=== PATIENT | female | born 1945 | race Hispanic/Latino ===

== ENCOUNTER 2017-02-04 05:58 | Inpatient (IN) | payer MEDICARE, OTHER ==
[2017-02-04 06:46] LABS: ALT (SGPT) 8 U/L (8-55); AST (SGOT) 13 U/L (5-34); Alkaline Phosphatase 48 U/L (40-150); Anion Gap 12 mmol/L (10-20); BUN (Urea Nitrogen) 30 mg/dL (9.8-20.1); Bilirubin, Total 0.2 mg/dL (0.2-1.2); Calc. Creatinine Clearance 0 mL/min (70-130); Calcium 7.8 mg/dL (7.8-10.44); Carbon Dioxide 21 mmol/L (23-31); Chloride 109 mmol/L (98-107); Estimated GFR-MDRD Greater than 90; Globulin 3.1 g/dL (2.4-3.5); Protein, Total 5.8 g/dL (6.0-8.3)
[2017-02-04 06:51] LABS: #Eosinphils 0.2 thou/uL (0.0-0.7); #Lymphocytes 0.9 thou/uL (1.20-3.40); #Monocytes 0.6 thou/uL (0.11-0.59); #Neutrophils 8.9 thou/uL (1.40-6.50); %Basophils 0.4 % (0.0-1.0); %Eosinophils 2.1 % (0.0-10.0); %Lymphocytes 8.7 % (21.0-51.0); %Monocytes 5.7 % (0.0-10.0); Hematocrit 17.4 % (36.0-47.0); Mean Platelet Volume 7.6 fL (7.4-10.4); Red Blood Cell (RBC) Count 2.04 mill/uL (4.20-5.40); White Blood Cell (WBC) Count 10.7 thou/uL (4.8-10.8)
[2017-02-04 06:57] LABS: PTT 23.8 SEC (22.9-36.1)
[2017-02-04 06:58] LABS: Prothrombin Time 15.1 SEC (12.0-14.7)
[2017-02-04 07:07] LABS: CK (CPK) 112 U/L (29-168); Lipase 55 U/L (8-78)
[2017-02-04 07:10] LABS: Bilirubin Negative (Negative); Blood, Urine Negative (Negative); Glucose, Urine (Dipstick) Negative (Negative); Ketone, Urine Trace mg/dL (Negative); Nitrite Negative (Negative); Protein, Urine (Dipstick) Negative (Neg-Trace); Urobilinogen 0.2 mg/dL (0.2-1.0)
[2017-02-04 07:12] LABS: Troponin I Less than 0.010 ng/mL (< 0.028)
[2017-02-04 07:24] LABS: Iron 255 ug/dL (50-170)
[2017-02-04] MEDS ORDERED: Zolpidem Tartrate 5 MG TAB ONE (07:27)
--- NOTE | 2017-02-04 07:58 | RAD ---
AP VIEW OF CHEST: Date: 02/04/17 INDICATION: Weakness. COMPARISON: Prior exam dated 11/04/15. FINDINGS: Chronic lung changes appear similar. Cardiomegaly persists. The large hiatal hernia appears slightly bigger. No pleural effusion or pneumothorax is evident. Vascular calcifications are similar. IMPRESSION: 1. Stable chronic lung changes. 2. Enlarging large hiatal hernia. POS: [facility]
[2017-02-04] MEDS ORDERED: HYDROcodone/Acetaminophen 5/325 mg Tablet PO PRN (10:32)
[2017-02-04] MEDS ORDERED: Nitroglycerin 0.4 MG TAB (25 Tab Bottle) SL PRN (10:32)
[2017-02-04] MEDS ORDERED: Zolpidem Tartrate 5 MG TAB PO PRN (10:32)
[2017-02-04] MEDS ORDERED: Ondansetron ODT 4 MG TAB PO PRN (10:32)
[2017-02-04] MEDS ORDERED: Loperamide HCl 2 MG CAP PO PRN (10:32)
[2017-02-04] MEDS ORDERED: hydrALAZINE 20 MG/ML VIAL SLOW IVP PRN (10:32)
[2017-02-04] MEDS ORDERED: Senokot 8.6 MG TAB PO PRN (10:32)
[2017-02-04] MEDS ORDERED: Loratadine 10 MG TAB PO PRN (10:32)
[2017-02-04] MEDS ORDERED: Mag-Al 1200 mg/1200 mg/30 ML UDCUP PO PRN (10:32)
[2017-02-04] MEDS ORDERED: Acetaminophen 325 MG TAB PO PRN (10:32)
[2017-02-04] MEDS ORDERED: Ondansetron HCl/PF 4 MG/2 ML Vial IVP PRN (10:32)
[2017-02-04] MEDS ORDERED: Eucerin (Mineral Oil/Petrolatum,White) 30 gm Jar TOP PRN (10:32)
[2017-02-04] MEDS ORDERED: Calcium Carbonate 500 MG ChewTAB PO PRN (10:32)
[2017-02-04] MEDS ORDERED: Milk Of Magnesia 30 ML UDCUP PO PRN (10:32)
[2017-02-04] MEDS ORDERED: Artificial Tears 18 DROP/0.9 ML EA EYE PRN (10:32)
[2017-02-04] MEDS ORDERED: Sodium Chloride 0.65% Nasal 44 ML BOT EA NARE PRN (10:32)
--- NOTE | 2017-02-04 11:03 | HP ---
PRIMARY CARE PHYSICIAN: The patient is city call admission. The patient is ordinarily from [place], [place]. REASON FOR ADMISSION: Severe symptomatic anemia and syncope. HISTORY OF PRESENT ILLNESS: A 71-year-old female with a history of COPD, hypertension, who was brought to the emergency room for syncopal episode. Patient recently came from [place] when she was visiting her daughter. During night time, she was sleeping with her granddaughter, she woke up around middle of night and she went to bathroom. At that time, she was feeling weird abdominal pain and she started feeling dizzy and she was not able to control herself and she fell down on the floor. Her granddaughter heard noise and when she checked her, at that time she was found on the floor, but she was conscious. She did not have any injury. She was not having any involuntary seizure-type of activity, but patient was appeared exhausted, weak and pale. Subsequently with the help of patient's daughter, the patient was taken to the room where she was continuously feeling nausea, dizziness, and she was feeling weak. She denies any hematochezia, hematemesis or vomiting, but she was having black stool, which she attributes to taking iron pill. She denies any abdominal pain. Lately, she was taking ibuprofen for the last 2-3 days for her arthritis pain. She denies any chest pain. She denies any palpitation. She denies any fever, chills or urinary tract infection symptoms. She denies any constipation or diarrhea. She does have chronic dyspnea on exertion and she does have chronic cough productive of white sputum from COPD. ALLERGIES: GABAPENTIN. CURRENT HOME MEDICATIONS: Albuterol 2 puff inhalation as needed, ferrous sulfate 325 mg twice daily, Singulair 10 mg p.o. daily, Symbicort 2 puff inhalation b.i.d., cetirizine 10 mg p.o. daily, lisinopril 10 mg p.o. daily and anastrozole 1 mg p.o. daily. REVIEW OF SYSTEMS: The following complete review of systems was negative, unless otherwise mentioned in the HPI or below: CONSTITUTIONAL: Weight loss or gain, ability to conduct usual activities. SKIN: Rash, itching. EYES: Double vision, pain. ENT/MOUTH: Nose bleeding, neck stiffness, pain, tenderness. CARDIOVASCULAR: Palpitations, dyspnea on exertion, orthopnea. RESPIRATORY: Shortness of breath, wheezing, cough, hemoptysis, fever or night sweats. GASTROINTESTINAL: Poor appetite, abdominal pain, heartburn, nausea, vomiting, constipation, or diarrhea. GENITOURINARY: Urgency, frequency, dysuria, nocturia. MUSCULOSKELETAL: Pain, swelling. NEUROLOGIC/PSYCHIATRIC: Anxiety, depression. ALLERGY/IMMUNOLOGIC: Skin rash, bleeding tendency Please see my HPI for pertinent positives and negatives. All other review of systems reviewed and negative except as mentioned in the HPI. PAST MEDICAL HISTORY: COPD, history of breast carcinoma, history of recurrent anemia required blood transfusion. PAST SURGICAL HISTORY: The patient reports that she had lymph node removed from CA breast on the left side and . PAST PSYCHIATRIC HISTORY: Reviewed and negative. SOCIAL HISTORY: Patient is originally from [place], [place]. She currently lives with her daughter. No history of tobacco, alcohol or illicit drug abuse. She is not working. FAMILY HISTORY: No strong family history of premature coronary artery disease, stroke or cancer. EMERGENCY ROOM COURSE: Patient is going to get 2 units of blood transfusion. Patient has received Protonix drip and IV fluid 1 liter. PHYSICAL EXAMINATION: VITAL SIGNS: On arrival, blood pressure 115/49, temperature 98.4, saturation 99 % on room air, pulse 104, respiratory rate 18. Weight 71.6 kilograms. GENERAL: Patient is currently alert, awake, appears weak. No obvious acute distress. The patient is currently mildly tachycardic and tachypneic. HEAD: Normocephalic, atraumatic. EYES: Pupils round, reactive to light. Pallor conjunctivae. No nystagmus. ENT: Pale mucous membranes. No oral lesions. No pharyngeal erythema, no exudate. NECK: Supple, no JVD, no thyromegaly, no carotid bruit. LUNGS: Bilateral few end expiratory wheezing heard. No rales. CARDIAC: S1, S2 regular, tachycardia, soft systolic murmur noted at parasternal area. No gallop, no rub. ABDOMEN: Soft, bowel sounds present, nontender, no epigastric tenderness. No peritoneal signs, no guarding, no rigidity, no rebound. BACK: Unremarkable, no CVA tenderness. EXTREMITIES: Upper extremity: Passive movement of all joints are normal. Lower extremity: Trace bilateral pitting edema noted. No good peripheral pulsation. SKIN: Pallor plus. No rash. HEMATOLOGICAL SYSTEM: No lymphadenopathy. PSYCHIATRIC: Normal affect. NEUROLOGIC: Nonfocal examination. The patient moves all 4 limbs. Plantar bilateral flexor. SIGNIFICANT LABS: EKG showing sinus tachycardia, no acute process. Chest x-ray : Cardiomegaly, chronic lung changes. CBC: WBC 10.7, hemoglobin 5.3, platelets 416, MCV 85.1. INR 1.2. BMPP: Sodium 137, potassium 4.6, chloride 109, carbon dioxide 21, BUN 30, creatinine 0.64, glucose 181 and calcium 7.8. LFT: AST 13, ALT 8, alkaline phosphatase 48 and albumin 2.7. Lipase 55. CK 112, CK-MB 2.5, troponin I less than 0.010. Iron 255, TIBC 329, ferritin 58.3. Urinalysis normal. Stool for guaiac negative. ASSESSMENT AND PLAN/IMPRESSION: 1. Severe symptomatic anemia. Currently, patient's hemoglobin is 5.3. Patient 's hemoccult is negative. She has iron deficiency anemia. She had a colonoscopy several years ago. We are suspecting chronic blood loss, underlying malignancy needs to be excluded given her symptomatic anemia. Patient will require 2 units of blood transfusion today and will repeat CBC tomorrow. Because of severe anemia, we will avoid any DVT prophylaxis with heparin product. At this point, we will consult Gastroenterology for further evaluation with upper and lower endoscopy. We will also continue with Protonix drip until finished, which was started in the emergency room and after that will change to Protonix 40 mg IV b.i.d. We will closely monitor on telemetry floor. 2. Chronic iron deficiency anemia. Patient has iron deficiency anemia from past as well, but currently acutely gotten worse. 3. Syncope. We will check orthostatic vitals to rule out orthostatic hypotension. Most likely, syncope is related with severe anemia. Plan would be as mentioned in problem #1. We will also obtain echocardiography to assess ejection fraction and other structural abnormality. 4. Chronic obstructive pulmonary disease /asthma. We will continue Solu- Medrol 20 mg IV q.8 hourly, DuoNeb q.6 hourly and Dulera 2 puffs inhalation b.i.d. 5. Hyperglycemia. We will check hemoglobin A1c to rule out any diabetes. 6. Hypertension. If blood pressure permits, then we will consider antihypertensive medication given blood pressure runs low in the emergency room. We will avoid her home blood pressure medication. 7. Deep venous thrombosis prophylaxis, sequential compression device boots. 8. Gastrointestinal prophylaxis. Currently, patient is on Protonix drip and subsequently we will resume Protonix 40 mg IV b.i.d. 9. Code status: The patient WANTED TO BE DNR BUT LATER ON CHANGED TO FULL CODE. The patient's daughter is surrogate decision maker. Disposition plan based on clinical course. We are expecting patient's stay in the hospital more than 2 midnights. Plan of care discussed with the patient in detail. ADDENDUM: IN EVENING I DISCUSSED CODE STATUS AGAIN AND PATIENT HAS CHANGED HER MIND AND SHE DECIDED TO BE FULL CODE. SO DNR CHANGED TO FULL CODE. WILL
[2017-02-04 11:45] LABS: Hemoglobin A1c 4.9 % (4.0-6.0)
[2017-02-04] MEDS: Diabetic Tussin 200 MG/10 ML UDCUP PO PRN (17:50)
[2017-02-04] MEDS: Pantoprazole 80 MG, Admixture Fee 1 EACH in Sodium Chloride 0.9% 100 ML IVP SCH (17:50)
[2017-02-04] MEDS: Ferrous Sulfate 325 MG TAB PO SCH (17:50)
[2017-02-04] MEDS: Mometasone/Formoterol 120 PUFF INHALER INH SCH (18:40)
[2017-02-04] MEDS: Montelukast Sodium 10 mg Tablet PO SCH (21:37)
--- NOTE | 2017-02-04 23:47 | CON ---
DATE OF CONSULTATION: 02/04/2017 HISTORY OF PRESENT ILLNESS: Patient is a 71-year-old female who was found passed out by her daughter. She had been feeling weak and dizzy for quite sometime. She has a long history of anemia . She says 15 years and is followed by Hematology-Oncologist in [place]. She has not been told the source of her anemia. She has undergone upper and lower endoscopies in the past as well as a cap beni endoscopy with no bleeding sites found. She never has any melena, hematochezia. She has no abd ominal pain, nausea, vomiting, or diarrhea. PAST MEDICAL HISTORY: Includes COPD, chronic anemia, breast cancer. PAST SURGICAL HISTORY: Includes breast surgery, . MEDICATIONS: Include albuterol 2 puffs q.4 hours p.r.n., ferrous sulfate 325 mg p.o. b.i.d., Singula ir 10 mg p.o. q. day, Symbicort 2 puffs inhaled b.i.d., cetirizine 10 mg p.o. q. day, lisinopril 10 m g p.o. q. day, anastrozole 1 mg p.o. q. day. ALLERGIES: GABAPENTIN. SOCIAL HISTORY: She does not smoke or drink. FAMILY HISTORY: Negative for GI or liver disease. REVIEW OF SYSTEMS: Constitutional: No fever or chills. No weight loss. Eyes: No blurred vision o r double vision. ENT: No sore throat or earaches. Cardiovascular: No chest pain or palpitations. Pulmonary: No shortness of breath, cough, or wheezing. Gastrointestinal: See above. Genitourinar y:: No hematuria or dysuria. Musculoskeletal: Positive for generalized weakness. Neurologic: No numbness or seizure activity. PHYSICAL EXAMINATION: GENERAL: Shows elderly female in no acute distress. VITAL SIGNS: Temperature 98.6, pulse 102, respiratory rate 20, blood pressure 123/56. HEENT: Unremarkable. NECK: Supple. CHEST: Clear. CARDIOVASCULAR: Regular rate and rhythm. ABDOMEN: Soft, nontender, without organomegaly or masses. Bowel sounds present and normoactive. RECTAL: Deferred. EXTREMITIES: Normal. NEUROLOGIC: Nonfocal. LABORATORY DATA: Urinalysis is normal. CBC on admission showed a hemoglobin of 53, hematocrit 17.4, MCV of 85.1, platelet count is 416, white blood cell count 10.7. Back in 2016, iron was 11, TIBC wa s 401 and percent saturation was 3. Ferritin this time is 58.33. ASSESSMENT: 1. Symptomatic anemia. 2. Syncope secondary to symptomatic anemia. 3. Previous GI workup for anemia has been negative. RECOMMENDATIONS: 1. No need for endoscopy at this time. Follow up with Hematology-Oncology. 2. May discontinue iron.
[2017-02-05] MEDS: Pantoprazole 80 MG, Admixture Fee 1 EACH in Sodium Chloride 0.9% 100 ML IVP SCH (03:51)
[2017-02-05 05:01] LABS: #Lymphocytes 0.8 thou/uL (1.20-3.40); #Monocytes 0.2 thou/uL (0.11-0.59); #Neutrophils 11.5 thou/uL (1.40-6.50); %Basophils 0.3 % (0.0-1.0); %Eosinophils 0.3 % (0.0-10.0); %Lymphocytes 6.1 % (21.0-51.0); %Monocytes 1.2 % (0.0-10.0); Mean Platelet Volume 7.5 fL (7.4-10.4); Red Blood Cell (RBC) Count 2.75 mill/uL (4.20-5.40); White Blood Cell (WBC) Count 12.5 thou/uL (4.8-10.8)
[2017-02-05 05:29] LABS: ALT (SGPT) 8 U/L (8-55); AST (SGOT) 14 U/L (5-34); Alkaline Phosphatase 46 U/L (40-150); Anion Gap 9 mmol/L (10-20); BUN (Urea Nitrogen) 14 mg/dL (9.8-20.1); Bilirubin, Total 0.4 mg/dL (0.2-1.2); Calc. Creatinine Clearance 85 mL/min (70-130); Calcium 8.2 mg/dL (7.8-10.44); Carbon Dioxide 21 mmol/L (23-31); Chloride 112 mmol/L (98-107); Estimated GFR-MDRD 88; Globulin 3.2 g/dL (2.4-3.5)
[2017-02-05] MEDS: Mometasone/Formoterol 120 PUFF INHALER INH SCH ×2 (07:10→18:48)
[2017-02-05] MEDS: Ferrous Sulfate 325 MG TAB PO SCH ×2 (08:21→17:09)
--- NOTE | 2017-02-05 09:12 | PDOC.PN ---
- Subjective Encounter Start Date: 02/05/17 Encounter Start Time: 07:40 -: old records requested/rev Patient seen and examined. No new complaints. No overnight events, still weak, - Objective Resuscitation Status: Resuscitation Status FULL:Full Resuscitation MAR Reviewed: Yes Vital Signs & Weight: Vital Signs (12 hours) Temp Pulse Resp BP BP BP Pulse Ox 02/05/17 08:00 98.2 F 101 H 16 112/56 L 94 L 02/05/17 07:10 90 12 02/05/17 07:05 96 02/05/17 07:03 90 12 02/05/17 04:00 98.0 F 92 22 H 91/45 L 94 L 02/05/17 03:47 98.0 F 92 22 H 91/45 L 94 L 02/05/17 00:51 96 02/05/17 00:00 93 96/46 L 02/04/17 23:43 98.9 F 93 18 96/46 L 94 L Weight Weight 155 lb 12.8 oz I&O: 02/04/17 02/05/17 02/06/17 06:59 06:59 06:59 Intake Total 1605 Output Total 3300 Balance -1695 Result Diagrams: 02/05/17 04:46 02/05/17 04:46 EKG Reviewed by me: Yes (sinus tachycardia) Phys Exam - Physical Examination Constitutional: NAD HEENT: PERRLA, moist MMs, sclera anicteric Neck: no JVD, supple Respiratory: no wheezing, no rales, no rhonchi Cardiovascular: RRR, no significant murmur, no rub Gastrointestinal: soft, non-tender, no distention, positive bowel sounds Musculoskeletal: no edema, pulses present Neurological: non-focal, normal sensation, moves all 4 limbs Lymphatic: no nodes Psychiatric: normal affect, A&O x 3 Skin: no rash, normal turgor Dx/Plan (1) Symptomatic anemia Code(s): D64.9 - ANEMIA, UNSPECIFIED Status: Acute (2) Syncope Code(s): R55 - SYNCOPE AND COLLAPSE Status: Acute (3) COPD (chronic obstructive pulmonary disease) Status: Chronic (4) Hypertension Code(s): I10 - ESSENTIAL (PRIMARY) HYPERTENSION Status: Chronic - Plan cont current plan of care * medication reviewed as below * symptomatic treatment * will consult hematology * as per GI- negative work up recently, no need of repeating again * start PT * echo pending. Review of Systems - Review of Systems Constitutional: Weakness. negative: Fever, Chills, Sweats, Malaise, Other ENT: negative: Ear Pain, Ear Discharge, Nose Pain, Nose Discharge, Nose Congestion, Mouth Pain, Mouth Swelling, Throat Pain, Throat Swelling, Other Respiratory: negative: Cough, Dry, Shortness of Breath, Hemoptysis, SOB with Excertion, Pleuritic Pain, Sputum, Wheezing Cardiovascular: negative: Chest Pain, Palpitations, Orthopnea, Paroxysmal Noc. Dyspnea, Edema, Light Headedness, Other Gastrointestinal: negative: Nausea, Vomiting, Abdominal Pain, Diarrhea, Constipation, Melena, Hematochezia, Other Genitourinary: negative: Dysuria, Frequency, Incontinence, Hematuria, Retention , Other Musculoskeletal: negative: Neck Pain, Shoulder Pain, Arm Pain, Back Pain, Hand Pain, Leg Pain, Foot Pain, Other Skin: negative: Rash, Lesions, Shaan, Bruising, Other - Medications/Allergies Allergies/Adverse Reactions: Allergies Allergy/AdvReac Type Severity Reaction Status Date / Time acetaminophen [From Tylenol] Allergy Verified 02/04/17 12:20 gabapentin Allergy Verified 02/04/17 10:43 Medications: Current Medications Hydrocodone Bitart/Acetaminophen ([place] 5/325) 1 tab PO Q4H PRN PRN Reason: Moderate Pain (4-6) Al Hydroxide/Mg Hydroxide (Maalox) 30 ml PO Q6H PRN PRN Reason: Heartburn or Indigestion Albuterol/Ipratropium (Duoneb) 3 ml NEB [id number] [facility] Last Admin: 02/05/17 07:03 Dose: 3 ml Artificial Tears (Tears Naturale) 0 drop EA EYE PRN PRN PRN Reason: Dry Eyes Calcium Carbonate (Tums) 1,000 mg PO Q4H PRN PRN Reason: Heartburn or Indigestion Ferrous Sulfate (Feosol) 325 mg PO BID-WM [facility] Last Admin: 02/05/17 08:21 Dose: 325 mg Guaifenesin (Robitussin Sf) 200 mg PO Q4H PRN PRN Reason: Cough Last Admin: 02/04/17 17:50 Dose: 200 mg Hydralazine HCl (Apresoline) 10 mg SLOW IVP Q4H PRN PRN Reason: Systolic BP > 180 Pantoprazole Sodium 80 mg/Miscellaneous Medication 1 each/ Sodium Chloride 100 mls @ 10 mls/hr IVP INF [facility] Last Admin: 02/05/17 03:51 Dose: 100 mls Loperamide HCl (Imodium) 2 mg PO PRN PRN PRN Reason: Diarrhea/Loose Stools Loratadine (Claritin) 10 mg PO DAILYPRN PRN PRN Reason: Sinus Symptoms Magnesium Hydroxide (Milk Of Magnesium) 30 ml PO DAILYPRN PRN PRN Reason: Constipation Methylprednisolone Sodium Succinate (Solu-Medrol) 20 mg IVP Q8HR [facility] Last Admin: 02/05/17 05:50 Dose: 20 mg Mineral Oil/White Petrolatum (Eucerin Cream) 0 gm TOP BIDPRN PRN PRN Reason: Dry Skin Mometasone Furoate/Formoterol Fumar (Dulera 200 Mcg/5 Mcg Inhaler) 2 puff INH BID-RT [facility] Last Admin: 02/05/17 07:10 Dose: 2 puff Montelukast Sodium (Singulair) 10 mg PO QPM [facility] Last Admin: 02/04/17 21:37 Dose: 10 mg Nitroglycerin (Nitrostat) 0.4 mg SL Q5MIN PRN PRN Reason: Chest Pain Ondansetron HCl (Zofran Odt) 4 mg PO Q6H PRN PRN Reason: Nausea/Vomiting Ondansetron HCl (Zofran) 4 mg IVP Q6H PRN PRN Reason: Nausea/Vomiting Senna (Senokot) 2 tab PO HSPRN PRN PRN Reason: Constipation Sodium Chloride ([place] Nasal Twilight 0.65%) 0 ml EA NARE QIDPRN PRN PRN Reason: Nasal Congestion Sodium Chloride (Flush - Normal Saline) 10 ml IVF Q12HR [facility] Last Admin: 02/05/17 08:21 Dose: 10 ml Sodium Chloride (Flush - Normal Saline) 10 ml IVF PRN PRN PRN Reason: Saline Flush Zolpidem Tartrate (Ambien) 5 mg PO HSPRN PRN PRN Reason: Insomnia
[2017-02-05 12:22] LABS: IRF 0.638 Ratio (0.163-0.362); Reticulocyte Count 6.8 % (0.5-1.5)
--- NOTE | 2017-02-05 13:55 | CON ---
DATE OF CONSULTATION: 02/05/2017 REASON FOR CONSULTATION: Anemia. HISTORY OF PRESENT ILLNESS: Ms. López is a pleasant 71-year-old female from [place], who presented to our emergency room with severe anemia. CBC in the emergency room showed a hemoglobin of 5.3, her white count was 10.7, and platelet count was 416,000. She was transfused 2 units of packed RBCs. She has a history of chronic anemia. She states she has had 9 transfusions over the past 17 years. She has been worked up in the past by both GI and her primary care in [place]. She was last seen by both her oncologist, her primary care, and her GI physician on 12/30/2016. She states that she was told that her blood was okay. She denies any bleeding. She states that usually she can tell when her hemoglobin drops because she gets short of breath and dizzy; however, this time she did not have those symptoms. She has been seen by Dr. Rocha. Since she had a recent GI workup, no further workup was planned. We were asked to see the patient regarding her anemia. PAST MEDICAL HISTORY: 1. Chronic anemia. 2. Hypertension. 3. History of left breast cancer, status post radiation and mastectomy. PAST SURGICAL HISTORY: 1. Mastectomy. 2. . ALLERGIES: GABAPENTIN. HOME MEDICATIONS: 1. ProAir p.r.n. 2. Arimidex daily. 3. Formoterol daily. 4. Calcium daily. 5. Zyrtec daily. 6. Iron b.i.d. 7. Lisinopril 10 mg daily. 8. Singulair daily. 9. Protonix 40 mg daily. 10. Tramadol p.r.n. FAMILY HISTORY: Noncontributory. SOCIAL HISTORY: She is . She lives with her sister in [place]. She is here visiting her daughter for a couple of weeks. No alcohol, tobacco, or illicit drug use. REVIEW OF SYSTEMS: Constitutional: No fever, chills, night sweats, recent weight loss or gain. Eyes: No blurred or double vision. ENT: No pain, hoarseness, sore throat, dysphagia. Cardiovascular: No chest pain, palpitations, or syncope. Respiratory: Occasional shortness of breath and dyspnea on exertion. No orthopnea or cough. Gastrointestinal: No nausea, vomiting, diarrhea, constipation, or abdominal pain. Genitourinary: No dysuria or hematuria. Musculoskeletal: No joint or back pain. Skin: No rash or pruritus. Hematologic: Denies bleeding, bruising, or clotting. Neurologic : Denies weakness, headache, numbness, tingling, or seizure activity. Psychiatric: Denies anxiety or depression. PHYSICAL EXAMINATION: VITAL SIGNS: Temperature is 98.0, pulse is 101, respiratory rate 16, BP is 112/ 56. She is 96% on room air. GENERAL: Well-developed, well-nourished female, in no acute distress. HEENT: Normocephalic, atraumatic. Pupils equal and reactive to light. She got poor dentition. NECK: Supple without JVD or mass. CARDIOVASCULAR: Regular rate and rhythm. LUNGS: Clear. ABDOMEN: Soft, nontender, bowel sounds are positive. EXTREMITIES: No clubbing, cyanosis, or edema. SKIN: No rash. HEMATOLOGICAL: No petechia or purpura. NEUROLOGICAL: Nonfocal. PSYCHIATRIC: The patient is alert and oriented and appropriate. PERTINENT LABORATORY AND X-RAYS: Current WBCs are 12.5, hemoglobin 7.5, hematocrit 24, platelet count 402,000, 92% neutrophils, 6% lymphocytes. PT is 15.1, INR is 1.2, PTT is 23.8. Sodium is 138, potassium 4.4, chloride 112, CO2 is 21, BUN is 14, creatinine 0.66. Hemoglobin A1c is 4.9, calcium 8.2, total bilirubin is 0.4, AST is 14, ALT is 8, alkaline phosphatase is 46. Iron is 255 , TIBC 329, ferritin is 58, troponin is negative. Serum total protein is 6, albumin 2.8. Urine was negative for bacteria. Chest x-ray showed no acute process. IMPRESSION: 1. Symptomatic anemia. 2. History of blood transfusions. 3. Previous negative GI workup. DISCUSSION: The patient states that she has been worked up in the past by primary care. She was recently seen by her primary care physician, her lung doctor, and her oncologist, who she states that they told her that all was well. Her last time this has happened was when she was here in 10/2015. She has received blood at that time and followed up with her physicians in [place]. We discussed possible bone marrow biopsy, but she declined and states she will talk to her physicians in [place]. She will notify her physician of this episode. She states she will be returning to [place] in the next week or two. I encouraged to continue her oral iron. No further recommendations at this time. Thank you for the consult. WILL
[2017-02-05] MEDS: Montelukast Sodium 10 mg Tablet PO SCH (21:08)
[2017-02-06 05:59] VITALS: BMI 27.3
[2017-02-06] MEDS: Mometasone/Formoterol 120 PUFF INHALER INH SCH ×2 (07:10→18:25)
[2017-02-06 07:58] LABS: #Lymphocytes 0.8 thou/uL (1.20-3.40); #Monocytes 0.7 thou/uL (0.11-0.59); #Neutrophils 13.6 thou/uL (1.40-6.50); %Basophils 0.2 % (0.0-1.0); %Eosinophils 0.1 % (0.0-10.0); %Lymphocytes 5.1 % (21.0-51.0); %Monocytes 4.8 % (0.0-10.0); Hematocrit 23.3 % (36.0-47.0); Mean Platelet Volume 6.9 fL (7.4-10.4); Red Blood Cell (RBC) Count 2.66 mill/uL (4.20-5.40); White Blood Cell (WBC) Count 15.1 thou/uL (4.8-10.8)
[2017-02-06 08:05] LABS: Anion Gap 9 mmol/L (10-20); BUN (Urea Nitrogen) 14 mg/dL (9.8-20.1); Calc. Creatinine Clearance 81 mL/min (70-130); Calcium 8.3 mg/dL (7.8-10.44); Carbon Dioxide 26 mmol/L (23-31); Chloride 106 mmol/L (98-107); Estimated GFR-MDRD 88
[2017-02-06] MEDS ORDERED: Iron Sucrose Complex 200 MG in Sodium Chloride 0.9% 250 ML 250 ML IVPB SCH (09:00)
--- NOTE | 2017-02-06 09:54 | PDOC.PN ---
- Subjective Encounter Start Date: 02/06/17 Encounter Start Time: 07:45 pt continue to feel weak, tired, gets palpitation with walking and dizzi, no chest pain - Objective Resuscitation Status: Resuscitation Status FULL:Full Resuscitation MAR Reviewed: Yes Vital Signs & Weight: Vital Signs (12 hours) Temp Pulse Resp BP Pulse Ox 02/06/17 08:07 98.0 F 85 18 120/55 L 93 L 02/06/17 07:09 86 14 96 02/06/17 04:00 97.6 F 100 18 116/56 L 96 02/05/17 23:31 98 Weight Weight 149 lb 9.6 oz I&O: 02/05/17 02/06/17 02/07/17 06:59 06:59 06:59 Intake Total 1605 1440 Output Total 3300 1450 Balance -1695 -10 Result Diagrams: 02/06/17 07:36 02/06/17 07:36 EKG Reviewed by me: Yes (nsr) Phys Exam - Physical Examination Constitutional: NAD HEENT: PERRLA, moist MMs, sclera anicteric Neck: no JVD, supple Respiratory: no wheezing, no rales, no rhonchi Cardiovascular: RRR, no significant murmur, no rub Gastrointestinal: soft, non-tender, no distention, positive bowel sounds Musculoskeletal: no edema, pulses present Neurological: non-focal, normal sensation, moves all 4 limbs Lymphatic: no nodes Psychiatric: normal affect, A&O x 3 Skin: no rash, normal turgor Dx/Plan (1) Symptomatic anemia Code(s): D64.9 - ANEMIA, UNSPECIFIED Status: Acute (2) Syncope Code(s): R55 - SYNCOPE AND COLLAPSE Status: Acute (3) COPD (chronic obstructive pulmonary disease) Status: Chronic (4) Hypertension Code(s): I10 - ESSENTIAL (PRIMARY) HYPERTENSION Status: Chronic - Plan cont current plan of care * today Hb is 7.4, though pt still has symptoms of anemia, so I would transfuse 1 unit of PRBC, and give one dose of parenteral iron, this will help to prevent her repeat admission * she will follow up with PCP in [place] to decide about bone marrow * medication reviewed as below * symptomatic treatment * will monitor today * echo result still pending * DC solumedrol * continue respiratory therapy. Review of Systems - Review of Systems Constitutional: Weakness, Malaise. negative: Fever, Chills, Sweats, Other Eyes: negative: Pain, Vision Change, Conjunctivae Inflammation, Eyelid Inflammation, Redness, Other Respiratory: Shortness of Breath, SOB with Excertion. negative: Cough, Dry, Hemoptysis, Pleuritic Pain, Sputum, Wheezing Cardiovascular: Light Headedness. negative: Chest Pain, Palpitations, Orthopnea , Paroxysmal Noc. Dyspnea, Edema, Other Gastrointestinal: negative: Nausea, Vomiting, Abdominal Pain, Diarrhea, Constipation, Melena, Hematochezia, Other Genitourinary: negative: Dysuria, Frequency, Incontinence, Hematuria, Retention , Other Musculoskeletal: negative: Neck Pain, Shoulder Pain, Arm Pain, Back Pain, Hand Pain, Leg Pain, Foot Pain, Other Skin: negative: Rash, Lesions, Shaan, Bruising, Other - Medications/Allergies Allergies/Adverse Reactions: Allergies Allergy/AdvReac Type Severity Reaction Status Date / Time acetaminophen [From Tylenol] Allergy Verified 02/04/17 12:20 gabapentin Allergy Verified 02/04/17 10:43 Medications: Current Medications Hydrocodone Bitart/Acetaminophen ([place] 5/325) 1 tab PO Q4H PRN PRN Reason: Moderate Pain (4-6) Al Hydroxide/Mg Hydroxide (Maalox) 30 ml PO Q6H PRN PRN Reason: Heartburn or Indigestion Albuterol/Ipratropium (Duoneb) 3 ml NEB [id number] [facility] Last Admin: 02/06/17 07:09 Dose: 3 ml Artificial Tears (Tears Naturale) 0 drop EA EYE PRN PRN PRN Reason: Dry Eyes Calcium Carbonate (Tums) 1,000 mg PO Q4H PRN PRN Reason: Heartburn or Indigestion Ferrous Sulfate (Feosol) 325 mg PO BID-WM [facility] Last Admin: 02/05/17 17:09 Dose: 325 mg Guaifenesin (Robitussin Sf) 200 mg PO Q4H PRN PRN Reason: Cough Last Admin: 02/04/17 17:50 Dose: 200 mg Hydralazine HCl (Apresoline) 10 mg SLOW IVP Q4H PRN PRN Reason: Systolic BP > 180 Ferric Sodium Gluconate Complex 250 mg/ Sodium Chloride 120 mls @ 60 mls/hr IVPB 1000 [facility] Stop: 02/06/17 11:59 Loperamide HCl (Imodium) 2 mg PO PRN PRN PRN Reason: Diarrhea/Loose Stools Loratadine (Claritin) 10 mg PO DAILYPRN PRN PRN Reason: Sinus Symptoms Magnesium Hydroxide (Milk Of Magnesium) 30 ml PO DAILYPRN PRN PRN Reason: Constipation Mineral Oil/White Petrolatum (Eucerin Cream) 0 gm TOP BIDPRN PRN PRN Reason: Dry Skin Mometasone Furoate/Formoterol Fumar (Dulera 200 Mcg/5 Mcg Inhaler) 2 puff INH BID-RT [facility] Last Admin: 02/06/17 07:10 Dose: 2 puff Montelukast Sodium (Singulair) 10 mg PO QPM [facility] Last Admin: 02/05/17 21:08 Dose: 10 mg Nitroglycerin (Nitrostat) 0.4 mg SL Q5MIN PRN PRN Reason: Chest Pain Ondansetron HCl (Zofran Odt) 4 mg PO Q6H PRN PRN Reason: Nausea/Vomiting Ondansetron HCl (Zofran) 4 mg IVP Q6H PRN PRN Reason: Nausea/Vomiting Pantoprazole Sodium (Protonix) 40 mg PO DAILY [facility] Senna (Senokot) 2 tab PO HSPRN PRN PRN Reason: Constipation Sodium Chloride (Moore Nasal [place] 0.65%) 0 ml EA NARE QIDPRN PRN PRN Reason: Nasal Congestion Sodium Chloride (Flush - Normal Saline) 10 ml IVF Q12HR [facility] Last Admin: 02/05/17 21:08 Dose: 10 ml Sodium Chloride (Flush - Normal Saline) 10 ml IVF PRN PRN PRN Reason: Saline Flush Zolpidem Tartrate (Ambien) 5 mg PO HSPRN PRN PRN Reason: Insomnia
[2017-02-06] MEDS: Ferrous Sulfate 325 MG TAB PO SCH ×2 (09:56→18:13)
[2017-02-06] MEDS ORDERED: Sodium Ferric Gluconate 250 MG in Sodium Chloride 0.9% 100 ML IVPB SCH (10:00)
[2017-02-06] MEDS: Montelukast Sodium 10 mg Tablet PO SCH (20:40)
[2017-02-07 06:16] LABS: Band 4 % (5-11); Hematocrit 30.4 % (36.0-47.0); Mean Platelet Volume 7.5 fL (7.4-10.4); Metamyelocyte 1 % (0-0); Neutrophil 72 % (42-75); Red Blood Cell (RBC) Count 3.32 mill/uL (4.20-5.40); White Blood Cell (WBC) Count 11.8 thou/uL (4.8-10.8)
[2017-02-07] MEDS: Mometasone/Formoterol 120 PUFF INHALER INH SCH (07:38)
[2017-02-07 08:21] VITALS: TEMP 98.3
[2017-02-07] MEDS: Ferrous Sulfate 325 MG TAB PO SCH (08:21)
[2017-02-07] MEDS: Diabetic Tussin 200 MG/10 ML UDCUP PO PRN (08:22)
[2017-02-07 10:55] VITALS: BP 121/58
--- NOTE | 2017-02-07 11:44 | DIS ---
DATE OF ADMISSION: 02/04/2017 PRIMARY DISCHARGE DIAGNOSES: 1. Symptomatic anemia. 2. Chronic obstructive pulmonary disease. 3. Diastolic heart failure. 4. Essential hypertension. HOSPITAL COURSE: The patient is a pleasant 71-year-old that was admitted for syncopal episode. The patient was here from [place] visiting her daughter, and when she went to the bathroom, she had a n abdominal discomfort as well as dizziness and she was found down by family. The patient was noted to have a history of chronic anemia and on iron therapy. Her hemoglobin down in the emergency room h ere was 5.3. The patient was admitted and transfused. Hematology/Oncology was consulted. The patie nt had received prior workups in the past in [place]. Thus, it was deemed appropriate for the pa birgit to seek followup with her physicians in [place]. She did have an echocardiogram performed, which showed an EF of 60-65%. The rest of her hospital stay remained uneventful. Upon discharge, h er hemoglobin was 9.5 with a hematocrit of 30.4 and platelet count of 403,000. CONSULTANTS: Hematology/Oncology. PROCEDURES: 2D echocardiogram results as per above. PHYSICAL EXAMINATION: GENERAL: She is in no acute distress. HEAD: Normocephalic, atraumatic. EYES, EARS, NOSE, THROAT: No abnormalities. CARDIAC: Regular rate and rhythm, no murmurs, regurg, or gallops. LUNGS: Clear to auscultation. ABDOMEN: Nontender, nondistended. EXTREMITIES: No clubbing, cyanosis or edema. DISCHARGE DISPOSITION: To home. DISCHARGE ACTIVITY: As tolerated. DISCHARGE DIET: Heart healthy. FOLLOWUP: The patient is to follow up with her primary care physician and car shunter in [facility] within 2-3 weeks. DISCHARGE MEDICATIONS: We will resume her home medication regimen, which includes iron supplementati on. No new scripts given at this time.
== END 2017-02-07 12:35 | disposition home or self-care (01) | DRG 812 ==
LOC: ERS 05:58 → 2NO 10:00
PROVIDERS: ADMIT Internal Medicine; ATTEND Internal Medicine
PROC: 30233N1 Transfusion of Nonautologous Red Blood Cells into Peripheral Vein, Percutaneous Approach (ICD-10-PCS; principal; 2017-02-04)
DX: D50.9 Iron deficiency anemia, unspecified (principal); I11.0 Hypertensive heart disease with heart failure; I95.9 Hypotension, unspecified; J44.9 Chronic obstructive pulmonary disease, unspecified; I50.30 Unspecified diastolic (congestive) heart failure; Z85.3 Personal history of malignant neoplasm of breast; R73.9 Hyperglycemia, unspecified; Z90.10 Acquired absence of unspecified breast and nipple
CPT/HCPCS: 36415; 36416; 36430; 51701; 71010; 80048; 80053; 81003; 82274; 82553; 82728; 83036; 83540; 83550; 83690; 84484; 85025; 85046; 85610; 85730; 86850; 86900; 86901; 93005; 93306; 94640; 94664; 96360; 96365; 96366; A4216; C9113; G8978-GP-CK; G8979-GP-CJ; J2916; J2920; J7050; J7620; P9016

== ENCOUNTER 2017-03-18 19:47 | Inpatient (IN) | payer MEDICARE ==
--- NOTE | 2017-03-18 20:54 | RAD ---
PA AND LATERAL VIEWS CHEST 03/18/17 HISTORY: Cough. FINDINGS: Comparison made with exam of 02/04/17. Cardiomegaly persists. Heart line is again seen. Chronic changes in the lung stark are again noted. There is consolidation in the right middle lobe versus lingula on the lateral view. No pneumothoraces or pleural effusions are seen. IMPRESSION: 1. Pneumonia. 2. Cardiomegaly. 3. Chronic lung changes. 4. Large hiatal hernia. POS: [facility]
[2017-03-18 21:27] LABS: #Eosinphils 0.1 thou/uL (0.0-0.7); #Lymphocytes 0.9 thou/uL (1.20-3.40); #Monocytes 1.1 thou/uL (0.11-0.59); #Neutrophils 10.3 thou/uL (1.40-6.50); %Basophils 0.3 % (0.0-1.0); %Eosinophils 1.2 % (0.0-10.0); %Lymphocytes 7.2 % (21.0-51.0); %Monocytes 8.7 % (0.0-10.0); %Neutrophils 82.6 % (42.0-75.0); Hemoglobin 7.5 g/dL (12.0-16.0); Mean Corpuscular HGB CONC 30.8 g/dL (32.0-36.0); Mean Corpuscular Hemoglobin 26.5 pg (27.0-31.0); Mean Corpuscular Volume 86.1 fl (81.0-99.0); Mean Platelet Volume 7.3 fL (7.4-10.4); Platelet Count 518 thou/uL (130-400); RBC Distribution Width 14.3 % (11.5-14.5); Red Blood Cell (RBC) Count 2.81 mill/uL (4.20-5.40); White Blood Cell (WBC) Count 12.5 thou/uL (4.8-10.8)
[2017-03-18 21:44] LABS: ALT (SGPT) 10 U/L (8-55); AST (SGOT) 12 U/L (5-34); Albumin 3.4 g/dL (3.4-4.8); Alkaline Phosphatase 56 U/L (40-150); Anion Gap 10 mmol/L (10-20); BUN (Urea Nitrogen) 19 mg/dL (9.8-20.1); Bilirubin, Total 0.2 mg/dL (0.2-1.2); Calc. Creatinine Clearance 0 mL/min (70-130); Calcium 8.7 mg/dL (7.8-10.44); Carbon Dioxide 27 mmol/L (23-31); Chloride 105 mmol/L (98-107); Estimated GFR-MDRD 76; Globulin 3.8 g/dL (2.4-3.5); Glucose 117 mg/dL (83-110); Protein, Total 7.2 g/dL (6.0-8.3); Sodium 138 mmol/L (136-145)
[2017-03-18 21:50] LABS: CKMB 1.3 ng/mL (0-6.6); Troponin I Less than 0.010 ng/mL (< 0.028)
[2017-03-18] MEDS ORDERED: cefTRIAXone\\ROCEPHIN 2 GM in Sodium Chloride 0.9% 100 ML IVPB SCH (23:15)
[2017-03-18] MEDS ORDERED: Azithromycin 500 MG in Sodium Chloride 0.9% 250 ML 250 ML IVPB SCH (23:15)
[2017-03-19] MEDS ORDERED: Ondansetron ODT 4 MG TAB SL PRN (01:23)
[2017-03-19] MEDS ORDERED: Ondansetron HCl/PF 4 MG/2 ML Vial IVP PRN (01:23)
[2017-03-19] MEDS ORDERED: Albuterol Sulfate 2.5 mg/3 ml Neb NEB PRN (01:25)
[2017-03-19] MEDS ORDERED: traMADol HCl 50 MG TAB PO PRN ×2 (01:47→06:28)
[2017-03-19] MEDS ORDERED: Acetaminophen 325 MG TAB PO PRN ×2 (01:51→07:52)
[2017-03-19 04:12] VITALS: BMI 27.1
[2017-03-19] MEDS ORDERED: Ondansetron ODT 4 MG TAB PO PRN (07:52)
[2017-03-19] MEDS ORDERED: Zolpidem Tartrate 5 MG TAB PO PRN (07:52)
[2017-03-19] MEDS ORDERED: cefTRIAXone\\ROCEPHIN 1 GM in Sodium Chloride 0.9% 100 ML IVPB SCH (08:00)
--- NOTE | 2017-03-19 08:47 | HP ---
PRIMARY CARE PROVIDER: [facility] call admission for [facility]. Referred to [facility] Hospitalist Service by [facility] for pneumonia and anemia. HISTORY OF PRESENT ILLNESS: The patient states she has been weak, headache, mild elevated temperatur e. No true hard shaking chills or sweats. She has had a nonproductive cough with some increasing sh ortness of breath. She notes that she uses 2 inhalers for asthma. She presented in the emergency ro om and was found to have pneumonia on chest x-ray and referred for admission. PAST MEDICAL HISTORY: Pertinent for a chronic anemia that has been worked up over and over and has r eceived transfusions in the numbers close to 20. She has COPD by history, hypertension, chronic anem ia, history of breast cancer. PAST SURGICAL HISTORY: Patient has had lymph node removed and breast surgery on the left side and a . CURRENT MEDICATIONS: Include Arimidex 1 mg a day, ProAir HFA 2 puffs q.6 hours p.r.n., ferrous sulfa te 325 mg a day, Symbicort 160/4.5 two puffs twice a day, Protonix 40 mg a day, Singulair 10 mg a day , lisinopril 10 mg a day and tramadol 50 mg p.o. t.i.d. p.r.n. ALLERGIES: Allergic to GABAPENTIN. SOCIAL HISTORY: Lives in [place], currently here visiting her daughter. No history of tobacco, alcohol or illicit drug use. CODE STATUS: FULL CODE status. Daughter next of kin. FAMILY HISTORY: No family history of premature coronary artery disease, stroke or cancer. REVIEW OF SYSTEMS: GENERAL: See present illness. EYES: Blurred vision. No flashing lights or brandin ble vision. EAR, NOSE, AND THROAT: No ear pain or drainage. No nasal bleeding. No trouble swallow ing. CARDIAC: No chest pain, orthopnea or paroxysmal nocturnal dyspnea. RESPIRATIONS: See present illness. No definite wheezing. She does have what she calls asthma for which she uses 2 inhalers d aily. GASTROINTESTINAL: No nausea, vomiting, diarrhea or constipation. No abdominal pain. GENITOU RINARY: No hematuria or dysuria. MUSCULOSKELETAL: No pain or swelling in her arms or legs at prese nt. PSYCHIATRIC: No anxiety, depression. NEUROLOGICAL: No strokes or seizures. SKIN: No bruisin g, bleeding or rash. HEME/LYMPH: No tender or swollen lymph nodes in axilla, inguinal or cervical a alphonse. PHYSICAL EXAMINATION: GENERAL: She is an alert, pleasant, cooperative lady. VITAL SIGNS: Temperature was 98.6, pulse 113, respirations 24, O2 sat 92%, blood pressure 127/68. HEAD, EYES, EAR, NOSE, AND THROAT: Reveal pupils equal, round, and reactive to light. Extraocular m ovements are intact. Sclerae white. Tympanic membranes clear. Nose clear. Oral mucous membranes a re wet with no lesions. NECK: No jugular venous distention, adenopathy or thyromegaly. CHEST: Mildly hyperresonant with mild decreased breath sounds, rales over the bilateral anterior james st at about the T8 level. HEART: Had a regular rate and rhythm. First and second heart sounds are clear. There are no murmur s or gallops. ABDOMEN: Soft, bowel sounds are normal. There is no hepatosplenomegaly, no mass, no rebound. EXTREMITIES: Reveal no cyanosis, clubbing or edema. PULSES: Carotid, radial, femoral, and dorsalis pedis pulses intact. SKIN: Warm and dry without bruises or rash. HEME/LYMPH: No tender or swollen lymph nodes in axilla, inguinal or cervical area. No petechial hem orrhages arms, legs, and nailbeds. NEUROLOGIC: Cranial nerves II-XII are intact. Moved all extremities. Sensation is intact. LABORATORY DATA AND X-RAY FINDINGS: Chest x-ray reviewed by myself, cardiomegaly, some chronic florez es. On the lateral view, there is an area of consolidation, it is difficult to tell whether that is right middle lobe or lingual on the left. No EKG has presented. Elevated white count of 12.5 with left shift, hemoglobin 7.5, and platelet count 518,000. Comp metab olic profile normal except for blood sugar of 117 and lactic acid normal at 1.3. TSH normal at 1.8. ADMITTING DIAGNOSES: 1. Pneumonia. 2. Chronic anemia with current hemoglobin of 7.5. 3. Chronic obstructive pulmonary disease. 4. Hypertension. PLAN: 1. Blood cultures are pending. Antibiotics have been started with Rocephin and Zithromax. She will be continued on her Symbicort. DuoNeb nebulizer has been added. IV fluids will be given. This pat ient will require 2-3 overnights for treatment. 2. She has pneumonia with high comorbidities of COPD and severe anemia. Her CBC and basic metabolic profile will be monitored. There is a significant risk of requiring transfusion during this hospita l stay. This patient cannot safely be treated as an outpatient with oral antibiotics.
[2017-03-19] MEDS: Anastrozole 1 MG TAB PO SCH (09:06)
[2017-03-19] MEDS: Ferrous Sulfate 325 MG TAB PO SCH ×2 (09:06→19:38)
[2017-03-19] MEDS: Lisinopril 10 MG TAB PO SCH (09:07)
[2017-03-19] MEDS: Sodium Chloride 0.9% 1,000 ML IV SCH ×2 (09:10→20:04)
[2017-03-19] MEDS: traMADol HCl 50 MG TAB PO PRN ×2 (12:46→20:02)
[2017-03-19] MEDS ORDERED: Naproxen 500 MG TAB PO SCH (15:30)
[2017-03-19] MEDS: Mometasone/Formoterol 120 PUFF INHALER INH SCH (19:16)
[2017-03-19] MEDS: Montelukast Sodium 10 mg Tablet PO SCH (20:02)
[2017-03-20] MEDS: cefTRIAXone\\ROCEPHIN 1 GM, Syringe 0.4 ML in Sterile Water 9.6 ML SLOW IVP SCH ×2 (00:05→23:57)
[2017-03-20] MEDS: Azithromycin 500 MG in Sodium Chloride 0.9% 250 ML 250 ML IVPB SCH (00:11)
[2017-03-20] MEDS: Sodium Chloride 0.9% 1,000 ML IV SCH ×3 (04:00→23:56)
[2017-03-20 05:05] LABS: #Basophils 0.1 thou/uL (0.0-0.2); #Eosinphils 0.4 thou/uL (0.0-0.7); #Monocytes 1.1 thou/uL (0.11-0.59); #Neutrophils 8.3 thou/uL (1.40-6.50); %Basophils 0.6 % (0.0-1.0); %Eosinophils 3.3 % (0.0-10.0); %Lymphocytes 9.3 % (21.0-51.0); %Monocytes 10.5 % (0.0-10.0); %Neutrophils 76.3 % (42.0-75.0); Hemoglobin 5.8 g/dL (12.0-16.0); Mean Corpuscular HGB CONC 30.8 g/dL (32.0-36.0); Mean Corpuscular Hemoglobin 27.2 pg (27.0-31.0); Mean Corpuscular Volume 88.2 fl (81.0-99.0); Mean Platelet Volume 8.2 fL (7.4-10.4); Platelet Count 339 thou/uL (130-400); RBC Distribution Width 14.8 % (11.5-14.5); Red Blood Cell (RBC) Count 2.13 mill/uL (4.20-5.40); White Blood Cell (WBC) Count 10.8 thou/uL (4.8-10.8)
--- NOTE | 2017-03-20 05:09 | PDOC.EVN ---
Event Note - Event Note Event Note: RN called with low Hb - Will transfuse 1 unit PRBC
[2017-03-20 05:15] LABS: Anion Gap 12 mmol/L (10-20); BUN (Urea Nitrogen) 9 mg/dL (9.8-20.1); Calc. Creatinine Clearance 92 mL/min (70-130); Calcium 7.9 mg/dL (7.8-10.44); Carbon Dioxide 21 mmol/L (23-31); Chloride 108 mmol/L (98-107); Estimated GFR-MDRD Greater than 90; Glucose 87 mg/dL (83-110); Potassium 4.4 mmol/L (3.5-5.1); Sodium 137 mmol/L (136-145)
[2017-03-20] MEDS: Lisinopril 10 MG TAB PO SCH (07:35)
[2017-03-20] MEDS: Ferrous Sulfate 325 MG TAB PO SCH ×2 (07:35→17:50)
[2017-03-20] MEDS: Mometasone/Formoterol 120 PUFF INHALER INH SCH ×2 (08:20→18:59)
[2017-03-20] MEDS: Anastrozole 1 MG TAB PO SCH (12:05)
--- NOTE | 2017-03-20 13:53 | PDOC.PN ---
- Subjective Encounter Start Date: 03/20/17 Encounter Start Time: 13:51 Patient seen at bedside. Morning labs showed a HB of 5.8. No dizziness, no diarrhea, no melena/hematochezia reported, no abdominal pain. - Objective Resuscitation Status: Resuscitation Status FULL:Full Resuscitation MAR Reviewed: Yes Vital Signs & Weight: Vital Signs (12 hours) Temp Pulse Pulse Resp BP BP BP 03/20/17 11:38 99 F 93 20 03/20/17 08:58 98.3 F 96 16 108/58 L 03/20/17 08:20 101 H 12 03/20/17 08:14 03/20/17 08:11 101 H 12 03/20/17 08:00 98.6 F 96 28 H 03/20/17 07:35 127/69 03/20/17 07:29 99.8 F H 90 18 03/20/17 06:00 99.1 F 103 H 18 129/65 03/20/17 05:48 98.8 F 99 99 20 127/67 03/20/17 04:48 98.9 F 114 H 20 03/20/17 03:45 BP BP BP Pulse Ox 03/20/17 11:38 96/55 L 92 L 03/20/17 08:58 03/20/17 08:20 03/20/17 08:14 96 03/20/17 08:11 03/20/17 08:00 114/61 114/61 94 L 03/20/17 07:35 03/20/17 07:29 127/69 96 03/20/17 06:00 94 L 03/20/17 05:48 127/67 93 L 03/20/17 04:48 109/64 95 03/20/17 03:45 95 Weight Weight 148 lb 9.6 oz I&O: 03/19/17 03/20/17 03/21/17 06:59 06:59 06:59 Intake Total 250 1798.25 350 Output Total 1000 400 Balance -750 1398.25 350 Result Diagrams: 03/20/17 03:53 03/20/17 03:53 Phys Exam - Physical Examination Constitutional: NAD HEENT: moist MMs Pale conjunctiva Neck: no JVD Respiratory: clear to auscultation bilateral Cardiovascular: RRR Gastrointestinal: soft Musculoskeletal: pulses present Neurological: normal sensation, moves all 4 limbs Psychiatric: A&O x 3 Skin: normal turgor Dx/Plan (1) PNA (pneumonia) Code(s): J18.9 - PNEUMONIA, UNSPECIFIED ORGANISM Status: Suspected (2) Anemia Code(s): D64.9 - ANEMIA, UNSPECIFIED Status: Acute Qualifiers: Anemia type: iron deficiency Comment: Acute drop (3) COPD (chronic obstructive pulmonary disease) Status: Chronic (4) Hypertension Code(s): I10 - ESSENTIAL (PRIMARY) HYPERTENSION Status: Chronic - Plan cont current plan of care, DVT proph w/SCDs * Transfuse 1 unit of PRBC. * Check Stool occult * Consult GI for possible occult bleeding ( As per patient last colonoscopy was 6-7 yrs ago, normal) * Monitor Hemodynamics * 250 cc NS bolus * H and H q8h x2 * IV antibiotics
[2017-03-20] MEDS ORDERED: Sodium Chloride 0.9% 500 ML IV SCH (14:00)
[2017-03-20 14:29] LABS: Hemoglobin 7.4 g/dL (12.0-16.0); Platelet Count 389 thou/uL (130-400)
[2017-03-20] MEDS ORDERED: GoLYTELY 4,000 ml Bottle PO SCH (18:45)
--- NOTE | 2017-03-20 20:34 | CON ---
DATE OF CONSULTATION: 03/20/2017 REASON FOR CONSULTATION: Anemia of unknown origin CONSULTING PHYSICIAN: Massimo Lucas M.D. HISTORY OF PRESENT ILLNESS: The patient is a 71-year-old female with past medical history of COPD, hypertension, breast cancer, and chronic anemia presenting with complaints of chronic anemia. She states that she was in her usual state of health until she came in with mildly increased shortness of breath. Routine labs at that point in time showed the presence of a significant anemia, and she was admitted to the hospital for anemia and blood infusion. She currently denies any other overt symptoms including nausea, vomiting, fevers, chills, abdominal pain, hematochezia, melena, hematemesis or overt blood loss. Of note, she states that she has had this chronic anemia for the last 15-17 years and has undergone extensive workup in the past including multiple upper endoscopies, lower endoscopies, and capsule endoscopy. The most recent EGD and colonoscopy were approximately 6-7 years ago with normal findings and no etiology for anemia seen. The capsule endoscopy was performed earlier than 7 years ago, again with no etiology for anemia seen. Currently, also having complaints of solid black stools daily with increased constipation, but she is also taking iron supplements concurrently. She has had multiple blood transfusions over the last year with this being approximately 11th or 12th episode. REVIEW OF SYSTEMS: A 12-category review of systems was obtained with responses negative except for the pertinent positives as listed in the HPI. PAST MEDICAL HISTORY: Per HPI. PAST SURGICAL HISTORY: x1. FAMILY HISTORY: Hodgkin's disease (brothers), unknown cancer (father), COPD, diabetes. SOCIAL HISTORY: Denies any tobacco, alcohol, or drugs. OUTPATIENT MEDICATIONS: Include Arimidex, albuterol, ferrous sulfate, Symbicort , Protonix, Singulair, lisinopril, and tramadol. ALLERGIES: GABAPENTIN. PHYSICAL EXAMINATION: VITAL SIGNS: Temperature 99, pulse 100, blood pressure 115/59, respiratory rate 18, satting 95% on room air. GENERAL: The patient is lying in bed, in no acute distress. Alert and oriented x4. HEENT: Normocephalic, atraumatic. Pupils equal and round, reactive to light. NECK: Supple. No JVD noted. CARDIOVASCULAR: Tachycardic rate, but regular rhythm. No discernible murmurs, gallops or rubs. RESPIRATORY: Clear to auscultation bilaterally with no discernible wheezes or rales. ABDOMEN: Normoactive bowel sounds, soft, nontender, nondistended. EXTREMITIES: No cyanosis, clubbing or edema. LABORATORY DATA: CBC with a white blood cell count of 10.8, hemoglobin 5.8, hematocrit 18.8, platelets 339. Chemistry with a sodium of 137, potassium 4.4, chloride 108, CO2 21, BUN 9, creatinine 0.58, glucose 87, AST 12, ALT 10. TSH 1.82. Alkaline phosphatase 56, total bilirubin 0.2, albumin 3.4. IMAGING STUDIES: No GI imaging is available for review at this time. ASSESSMENT AND PLAN: The patient is a 71-year-old female with past medical history of chronic obstructive pulmonary disease, hypertension, breast cancer and chronic anemia, who presented with continued anemia. Anemia: The patient presenting with a chronic anemia that has been present for the last 15-17 years and has undergone extensive workup to include multiple upper and lower endoscopies in addition to a capsule endoscopy, all of which were negative for an etiology for her anemia. Currently presenting with increased shortness of breath associated with significant anemia noted on her CBC on admission. At this point, there are no complaints of overt blood loss or gastrointestinal bleeding and with a possible occult blood loss, upper and lower endoscopy are indicated (given the last procedures she had were approximately 6-7 years ago). Differential could include esophagitis, gastritis , peptic ulcer disease (much less likely) AVM/Dieulafoy lesion, colitis (much less likely) and/or malignancy. RECOMMENDATIONS: 1. We would continue to trend H&H and transfuse as necessary to maintain an H& H of 09/25. 2. We will plan for EGD and colonoscopy tomorrow. Please make the patient n.p.o. at midnight with administration of GoLYTELY tonight in preparation for that studies. 3. If the above is negative, could consider CT scan of the abdomen and pelvis for signs of possible intra-abdominal bleeding. 4. Can continue PPI 40 mg daily given possibility of upper gastrointestinal bleeding. MTDD
[2017-03-20] MEDS: Montelukast Sodium 10 mg Tablet PO SCH (20:38)
[2017-03-20 22:23] LABS: Hemoglobin 9.4 g/dL (12.0-16.0); Platelet Count 496 thou/uL (130-400)
[2017-03-21] MEDS: Azithromycin 500 MG in Sodium Chloride 0.9% 250 ML 250 ML IVPB SCH ×2 (00:03→23:43)
[2017-03-21] MEDS: Mometasone/Formoterol 120 PUFF INHALER INH SCH ×2 (07:33→18:26)
[2017-03-21] MEDS: Ferrous Sulfate 325 MG TAB PO SCH ×2 (08:04→15:55)
[2017-03-21] MEDS: Anastrozole 1 MG TAB PO SCH (08:04)
[2017-03-21] MEDS ORDERED: Vancomycin HCl 1 GM in Premix Bag 1 BAG IVPB SCH ×2 (10:10→15:15)
--- NOTE | 2017-03-21 10:16 | PDOC.PN ---
- Subjective Encounter Start Date: 03/21/17 Encounter Start Time: 10:15 Patient seen at bedside. No overnight events. No new complaints, no dizziness, no SOB - Objective Resuscitation Status: Resuscitation Status FULL:Full Resuscitation MAR Reviewed: Yes Vital Signs & Weight: Vital Signs (12 hours) Temp Pulse Resp BP BP Pulse Ox 03/21/17 08:00 98.2 F 100 24 H 95 03/21/17 07:46 98.2 F 100 24 H 105/57 L 94 L 03/21/17 07:33 91 16 03/21/17 07:24 94 L 03/21/17 07:22 91 16 03/21/17 04:00 98.2 F 99 20 110/67 96 03/20/17 23:54 98.3 F 118 H 18 127/63 95 Weight Weight 148 lb 9.6 oz I&O: 03/20/17 03/21/17 03/22/17 06:59 06:59 06:59 Intake Total 1798.25 6875 Output Total 400 Balance 1398.25 6875 Result Diagrams: 03/20/17 21:51 03/20/17 03:53 Phys Exam - Physical Examination Constitutional: NAD HEENT: moist MMs Neck: no JVD Respiratory: clear to auscultation bilateral Cardiovascular: RRR Gastrointestinal: soft Musculoskeletal: pulses present Neurological: moves all 4 limbs Psychiatric: A&O x 3 Dx/Plan (1) PNA (pneumonia) Code(s): J18.9 - PNEUMONIA, UNSPECIFIED ORGANISM Status: Suspected (2) Anemia Code(s): D64.9 - ANEMIA, UNSPECIFIED Status: Acute Qualifiers: Anemia type: iron deficiency Comment: Acute drop in hemoglobin (3) COPD (chronic obstructive pulmonary disease) Status: Chronic (4) Hypertension Code(s): I10 - ESSENTIAL (PRIMARY) HYPERTENSION Status: Chronic - Plan cont current plan of care, continue antibiotics, out of bed/ambulate, DVT proph w/SCDs * Continue to monitor H and H. Transfuse to keep Hemoglobin/Hematocrit 09/25 * PPI * For EGD/Colonoscopy today. If WNL may need a CT of abdomen/pelvis * Anemia is likely from Iron deficiency, however given the acute drop will require intervention * Continue with IV Antibiotics
[2017-03-21] MEDS ORDERED: Promethazine HCl 25 MG/ML VIAL SLOW IVP PRN (14:26)
[2017-03-21] MEDS ORDERED: Promethazine HCl 25 MG/ML VIAL IM PRN (14:26)
[2017-03-21] MEDS ORDERED: Ondansetron HCl/PF 4 MG/2 ML Vial IVP PRN (14:26)
[2017-03-21] MEDS ORDERED: Lidocaine 1% PF 5 ML VIAL ONE (14:32)
[2017-03-21] MEDS ORDERED: PROPOFOL 200 MG/20 ML VIAL ONE (14:32)
--- NOTE | 2017-03-21 18:50 | OP ---
DATE OF PROCEDURE: 03/21/2017 PROCEDURE: Esophagogastroduodenoscopy with biopsy, colonoscopy (diagnostic). INDICATIONS FOR PROCEDURE: Severe anemia. DESCRIPTION OF PROCEDURE: After the risks and benefits of the procedure were explained to the patient including risks of bleeding, infection, perforation, reaction to anesthesia and/or pain, informed consent was obtained. At which point, the patient was taken to the endoscopy suite where deep sedation was administered via propofol and anesthesia support. The standard gastroscope was then introduced into the mouth with intubation of the esophagus, stomach and proximal small intestine with the findings listed below. The patient tolerated the procedure well with no immediate perioperative complications. FINDINGS: Esophagus: Normal appearing mucosa was seen in the proximal and mid esophagus. [place]-colored mucosa was seen in the distal esophagus extending from the GE junction proximally in a circumferential fashion from 34 cm to 32 cm and at maximal extension to 30 cm. Biopsies were taken of the salmon-colored mucosa for evaluation of possible England's esophagus. A large hiatal hernia was also seen with the diaphragmatic pinch seen at 42 cm while the GE junction was seen at 34 cm, indicating an 8 cm hiatal hernia. Stomach: Normal appearing mucosa was seen in the cardia, fundus, body, antrum and incisura. There was no evidence of erosions, ulcerations, or mass lesions. A large hiatal hernia was seen on gastric retroflexion without evidence of Yosef's erosions/ulcerations. Duodenum: Normal appearing mucosa was seen in the duodenal bulb and second portion of the duodenum. There was no evidence of erosions, ulcerations, or mass lesions. IMPRESSION: 1. An 8-cm hiatal hernia; which could contribute to chronic iron deficiency anemia secondary to mechanical shear forces from a sliding hiatal hernia. 2. 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 3. No active/recent bleeding seen on examination today. PROCEDURE: Colonoscopy. DESCRIPTION OF PROCEDURE: After the risks and benefits of the procedure were explained to the patient including risks of bleeding, infection, perforation, reaction to anesthesia and/or pain, informed consent was obtained. The patient was then taken to the endoscopy suite where deep sedation was administered via propofol and anesthesia support. The standard colonoscope was then introduced into the rectum and advanced to the terminal ileum with mild to moderate difficulty due to significant tortuosity/redundancy of the patient's colon. However, no additional maneuvers were needed to facilitate passage of the scope. The quality of the prep was fair to poor with a fair amount of both solid and liquid stool remaining in the colon. The patient tolerated the procedure well with no immediate perioperative complications. RECTAL EXAM: Large external hemorrhoids were seen with a bluish tinge to them concerning for possible thrombosis. COLON: A moderate amount of both solid and liquid stool was seen and retained throughout the entire colon, limiting visualization of the colonic mucosal somewhat of the mucosa visualized, normal appearing mucosa was seen in the terminal ileum at the ileocecal valve and appendiceal orifice. Multiple diverticula were seen throughout the entire colon; in the ascending, transverse , descending and sigmoid colon, but especially within the sigmoid colon. Otherwise, the mucosa appeared normal with normal appearing mucosa in the ascending, transverse, descending, sigmoid colon, and rectum. Small internal hemorrhoids were seen on rectal retroflexion. IMPRESSION: 1. Fair to poor prep limiting visualization of the colonic mucosa (inadequate for the visualization of fine mucosal lesions, but adequate for evaluation of bleeding/gross lesions). 2. Moderate to severe pancolonic diverticulosis. 3. No etiology for anemia was seen during the colonoscopic examination today. RECOMMENDATIONS: 1. Follow up with primary inpatient team. 2. We would continue pantoprazole 40 mg daily given the size of the large hiatal hernia and presence of possible England's esophagus in the distal esophagus. 3. We would continue to trend H&H and transfuse as necessary to maintain an H& H of 7/21. 4. We would monitor for clinical signs of gastrointestinal bleeding. 5. Could consider surgical consultation for correction of large hiatal hernia that could be contributing to chronic anemia. 6. We would recommend a higher fiber diet given presence of both diverticulosis and hemorrhoids on exam today. [facility]
[2017-03-21] MEDS: Montelukast Sodium 10 mg Tablet PO SCH (20:38)
[2017-03-21] MEDS: cefTRIAXone\\ROCEPHIN 1 GM, Syringe 0.4 ML in Sterile Water 9.6 ML SLOW IVP SCH (23:43)
[2017-03-22 05:05] LABS: #Eosinphils 0.3 thou/uL (0.0-0.7); #Lymphocytes 1.1 thou/uL (1.20-3.40); #Monocytes 0.9 thou/uL (0.11-0.59); %Basophils 0.5 % (0.0-1.0); %Eosinophils 3.9 % (0.0-10.0); %Lymphocytes 12.9 % (21.0-51.0); %Monocytes 10.5 % (0.0-10.0); %Neutrophils 72.2 % (42.0-75.0); Hemoglobin 8.3 g/dL (12.0-16.0); Mean Corpuscular HGB CONC 31.1 g/dL (32.0-36.0); Mean Corpuscular Hemoglobin 28.2 pg (27.0-31.0); Mean Corpuscular Volume 90.4 fl (81.0-99.0); Mean Platelet Volume 7.9 fL (7.4-10.4); Platelet Count 390 thou/uL (130-400); RBC Distribution Width 15.6 % (11.5-14.5); Red Blood Cell (RBC) Count 2.93 mill/uL (4.20-5.40); White Blood Cell (WBC) Count 8.2 thou/uL (4.8-10.8)
[2017-03-22] MEDS: Mometasone/Formoterol 120 PUFF INHALER INH SCH (06:23)
[2017-03-22] MEDS: Sodium Chloride 0.9% 1,000 ML IV SCH (07:37)
[2017-03-22] MEDS: Ferrous Sulfate 325 MG TAB PO SCH (07:38)
[2017-03-22] MEDS: Anastrozole 1 MG TAB PO SCH (07:39)
--- NOTE | 2017-03-22 08:56 | PDOC.PN ---
- Subjective Encounter Start Date: 03/22/17 Encounter Start Time: 09:30 Subjective: No complaints. SOB/weakness/cough all improved. Would like to -: go home. - Objective Resuscitation Status: Resuscitation Status FULL:Full Resuscitation MAR Reviewed: Yes Vital Signs & Weight: Vital Signs (12 hours) Temp Pulse Resp BP Pulse Ox 03/22/17 07:41 98.1 F 85 20 111/66 92 L 03/22/17 06:23 85 16 94 L 03/22/17 06:21 85 16 94 L 03/22/17 05:57 97.4 F L 85 16 111/67 93 L 03/22/17 03:52 95 03/22/17 00:00 97.9 F 98 18 106/66 92 L 03/21/17 22:07 100 12 93 L Weight Weight 148 lb 9.6 oz I&O: 03/21/17 03/22/17 03/23/17 06:59 06:59 06:59 Intake Total 6875 1490 Balance 6875 1490 Result Diagrams: 03/22/17 04:09 03/20/17 03:53 Phys Exam - Physical Examination Constitutional: NAD HEENT: moist MMs Respiratory: no wheezing, no rales, no rhonchi Cardiovascular: RRR, no significant murmur Gastrointestinal: soft, positive bowel sounds Neurological: non-focal, moves all 4 limbs Psychiatric: normal affect, A&O x 3 Dx/Plan (1) PNA (pneumonia) Code(s): J18.9 - PNEUMONIA, UNSPECIFIED ORGANISM Status: Acute Comment: On Rocephin and Azithromycin since 03/18/2017, switching to oral abx (2) Chronic blood loss anemia Code(s): D50.0 - IRON DEFICIENCY ANEMIA SECONDARY TO BLOOD LOSS (CHRONIC) Status: Acute Comment: stable s/p transfusion, stable above 8 (3) COPD (chronic obstructive pulmonary disease) Status: Chronic (4) Hypertension Code(s): I10 - ESSENTIAL (PRIMARY) HYPERTENSION Status: Chronic - Plan cont current plan of care, continue antibiotics Hgb stable, hemoccult neg and no bleeding on EGD/Colonoscopy. Patient -: feeling much better. Appropriate for discharge and f/u outpatient. Patient -: to f/u with PCP in [place], or establish in town if going to stay here -: long term care phlebotomist. Recheck CBC later this week. * . - Discharge Day Encounter end time: 10:00
--- NOTE | 2017-03-22 11:34 | DIS ---
PRIMARY CARE PHYSICIAN: [facility], out of town doctor in [place]. DIAGNOSES ON ADMISSION: 1. Pneumonia. 2. Chronic anemia. 3. Chronic obstructive pulmonary disease. 4. Hypertension. DISCHARGE DIAGNOSES: 1. Pneumonia. 2. Chronic blood loss anemia. 3. Chronic obstructive pulmonary disease. 4. Hypertension. PROCEDURES: 1. EGD showing an 8 cm hiatal hernia, possibly contributing to chronic iron deficiency anemia second gillian to mechanical sheer forces. Possible England's esophagitis, no active bleeding. 2. Colonoscopy showing moderate to severe pancolonic diverticulosis and significant external hemorrh oids, but no active bleeding. CONSULTATIONS: Gastroenterology, Dr. Billings PERTINENT LABORATORY: Hemoglobin initially 7.5, dropped to 5.8 during hospital stay, came back up af ter transfusion and was 8.3 at discharge. MCV is normal. SUMMARY OF HOSPITAL COURSE: This is a 71-year-old female with a history of weakness, low gr sun fever and a nonproductive cough. She was diagnosed with pneumonia in the Emergency Room and was admitted to the hospital for IV antibiotics. During the hospital stay, patient's hemoglobin had a dr amatic drop, possibly after IV hydration. She did not have any visible bleeding and Hemoccult was ne gative. The patient has history of chronic recurrent anemia and has had to have many transfusions in the past. 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 She has had recurrent workups with EGD, colonoscopy, and a capsule endoscopy without etiology. Dr. Andrews dumont was consulted during her hospitalization, he did an EGD and colonoscopy as above. The patient d id have a transfusion of blood products. Her hemoglobin returned to adequate levels and was stable a t discharge. The patient might benefit from a surgical consultation in the future to consider hiatal hernia repair to prevent sheering forces possibly contributing to her anemia. The patient was doing much better the day of discharge and was eager to get home. She is considering getting a primary ca re physician in [facility] because she does travel her regularly to see her daughter and her primary care d ronn is actually in [place]. DISCHARGE MANAGEMENT: Discharged home. Follow up with her primary care doctor later this week for r epeat CBC. If she does decide to stay in [facility] she needs to establish with a new primary care doctor in [facility] in the next 3-4 days. ACTIVITY: As tolerated. DIET: Healthy heart, low sodium diet. DISCHARGE MEDICATIONS: 1. Azithromycin 250 mg daily for another 3 days. 2. Cefdinir 300 mg twice a day for another 7 days. The patient is to resume all home medications. 3. Arimidex 1 mg daily. 4. ProAir as needed. 5. Ferrous sulfate 325 mg twice a day, I have instructed her to take these an hour before meals and take them with vitamin C to help with absorption. 6. Zyrtec 10 mg at night. 7. Calcium 600 mg daily. 8. Symbicort 2 puffs twice a day. 9. Guaifenesin/dextromethorphan as needed. 10. Protonix 40 mg daily. 11. Singular 10 mg at night. 12. Lisinopril 10 mg daily. 13. Tramadol as needed.
[2017-03-22 12:01] VITALS: BP 133/71; TEMP 98.3
[2017-03-22] MEDS ORDERED: Azithromycin 250 MG TAB PO SCH (21:00)
[2017-03-22] MEDS ORDERED: Cefdinir 300 MG CAP PO SCH (21:00)
--- NOTE | 2017-04-17 21:26 | EKG ---
Test Reason : WEAKNESS Blood Pressure : / mmHG Vent. Rate : 117 BPM Atrial Rate : 117 BPM P-R Int : 116 ms QRS Dur : 062 ms QT Int : 304 ms P-R-T Axes : 015 006 035 degrees QTc Int : 424 ms Sinus tachycardia with Premature supraventricular complexes Nonspecific ST abnormality Abnormal ECG Confirmed by YARELIS MONTANO M.D. ([id number]), movie editor YOVANNY MAYBERRY ([id number]) on 04/17/2017 9:25:57 PM Referred By: Confirmed By:YARELIS MONTANO M.D.
== END 2017-03-22 12:54 | disposition home or self-care (01) | DRG 194 ==
LOC: ERS 19:47 → 2SW 23:49 → OBSVTOIN 23:49 → T4-B 03-19 17:56
PROVIDERS: ADMIT Internal Medicine; ATTEND Internal Medicine
PROC: 30233N1 Transfusion of Nonautologous Red Blood Cells into Peripheral Vein, Percutaneous Approach (ICD-10-PCS; 2017-03-20)
PROC: 0DB38ZX Excision of Lower Esophagus, Via Natural or Artificial Opening Endoscopic, Diagnostic (ICD-10-PCS; principal; 2017-03-21)
PROC: 0DJD8ZZ Inspection of Lower Intestinal Tract, Via Natural or Artificial Opening Endoscopic (ICD-10-PCS; 2017-03-21)
DX: J18.9 Pneumonia, unspecified organism (principal); J44.0 Chronic obstructive pulmonary disease with (acute) lower respiratory infection; D50.0 Iron deficiency anemia secondary to blood loss (chronic); J45.901 Unspecified asthma with (acute) exacerbation; I10 Essential (primary) hypertension; K44.9 Diaphragmatic hernia without obstruction or gangrene; Z85.3 Personal history of malignant neoplasm of breast; K64.4 Residual hemorrhoidal skin tags; K64.8 Other hemorrhoids; K22.70 Barrett's esophagus without dysplasia; K57.30 Diverticulosis of large intestine without perforation or abscess without bleeding
CPT/HCPCS: 36415; 36430; 71046; 80048; 80053; 82274; 82553; 83605; 83735; 83880; 84443; 84484; 85025; 86850; 86900; 86901; 87040; 87804; 88305; 88312; 88313; 93005; 94640; 96365; 96375; A4216; J0456; J0696; J2001; J2704; J7050; J7620; P9016

== ENCOUNTER 2017-06-17 14:48 | Emergency (ER) | payer MEDICARE, OTHER ==
--- NOTE | 2017-06-17 15:32 | RAD ---
CHEST 1 VIEW: HISTORY: Cough. COMPARISON: Chest radiograph 03/18/17. FINDINGS: Large sliding hiatal hernia. Cardiac silhouette and mediastinal contour is similar. There are exten sive chronic-appearing interstitial opacities throughout the lung bases. No pneumothorax. No acute osseous abnormality. Dense calcifications of the transverse aorta. IMPRESSION: 1. Large sliding hiatal hernia. 2. Chronic interstitial changes can be seen with pulmonary fibrosis. POS: [facility]
[2017-06-17 15:36] LABS: #Eosinphils 0.3 thou/uL (0.0-0.7); #Monocytes 0.7 thou/uL (0.11-0.59); #Neutrophils 9.5 thou/uL (1.40-6.50); %Basophils 0.3 % (0.0-1.0); %Eosinophils 2.8 % (0.0-10.0); %Lymphocytes 8.3 % (21.0-51.0); %Monocytes 5.9 % (0.0-10.0); %Neutrophils 82.6 % (42.0-75.0); Hemoglobin 8.9 g/dL (12.0-16.0); Mean Corpuscular Hemoglobin 27.6 pg (27.0-31.0); Mean Corpuscular Volume 86.4 fl (81.0-99.0); Mean Platelet Volume 7.8 fL (7.4-10.4); Platelet Count 439 thou/uL (130-400); RBC Distribution Width 16.9 % (11.5-14.5); Red Blood Cell (RBC) Count 3.23 mill/uL (4.20-5.40); White Blood Cell (WBC) Count 11.5 thou/uL (4.8-10.8)
[2017-06-17 15:56] LABS: ALT (SGPT) 13 U/L (8-55); AST (SGOT) 19 U/L (5-34); Albumin 3.5 g/dL (3.4-4.8); Alkaline Phosphatase 61 U/L (40-150); Anion Gap 14 mmol/L (10-20); BUN (Urea Nitrogen) 17 mg/dL (9.8-20.1); Bilirubin, Total 0.2 mg/dL (0.2-1.2); CK (CPK) 155 U/L (29-168); Calc. Creatinine Clearance 0 mL/min (70-130); Calcium 9.2 mg/dL (7.8-10.44); Carbon Dioxide 23 mmol/L (23-31); Chloride 104 mmol/L (98-107); Estimated GFR-MDRD 75; Globulin 3.9 g/dL (2.4-3.5); Glucose 135 mg/dL (83-110); Magnesium 2.3 mg/dL (1.6-2.6); Potassium 4.8 mmol/L (3.5-5.1); Protein, Total 7.4 g/dL (6.0-8.3); Sodium 136 mmol/L (136-145)
[2017-06-17 16:00] LABS: Troponin I Less than 0.010 ng/mL (< 0.028)
[2017-06-17 16:05] LABS: Bilirubin Negative (Negative); Blood, Urine Negative (Negative); Clarity CLEAR (Clear); Glucose, Urine (Dipstick) Negative (Negative); Leukocyte Small (Negative); Nitrite Negative (Negative); Protein, Urine (Dipstick) Negative (Neg-Trace); Specific Gravity, Urine 1.022 (1.002-1.036); Urobilinogen 0.2 mg/dL (0.2-1.0)
[2017-06-17 16:07] LABS: Bacteria/HPF None Seen HPF (None Seen); Hyaline Casts/LPF 0-3 HYALINE CAST LPF (0-3 Hyaline); Pathc Cast-AUWi Flag 0.58 (0-2.49); RBC/HPF 0-3 HPF (0-3); Squamous Epithelial 0-3 HPF (0-3); WBC/HPF 0-3 HPF (0-3)
== END 2017-06-17 18:24 | disposition home or self-care (01) ==
LOC: ERS 14:48
DX: D50.0 Iron deficiency anemia secondary to blood loss (chronic) (principal); I10 Essential (primary) hypertension; J44.9 Chronic obstructive pulmonary disease, unspecified; Z79.899 Other long term (current) drug therapy
CPT/HCPCS: 71045; 80053; 81003; 81015; 82550; 82553; 83735; 83880; 84484; 85025; 87086; 93005; 96360; 96361

== ENCOUNTER 2017-07-28 07:57 | Emergency (ER) | payer MEDICARE, OTHER ==
--- NOTE | 2017-07-28 09:35 | RAD ---
CHEST PA AND LATERAL: History: 71-year-old female with history of dyspnea, cough, and cold symptoms since Wednesday. Comparison: 03-18-17 FINDINGS: Again noted is a moderately large hiatal hernia. There are some parenchymal changes in the right midd le lobe, evidence for atelectasis and/or pneumonia, but stable from 03-18 study. There is also some mi nimal parenchymal changes in the left lower lobe. Scattered reticular nodular parenchymal changes not ed in the right upper lobe, but these changes also appear to be stable. IMPRESSION: Moderately large hiatal hernia. Right middle lobe stable appearing atelectasis and/or pneumonia. Mini mal increased markings in the left base, stable. Patchy interstitial and reticular nodular parenchyma l changes in the right lung also appearing stable. No evidence for new confluent process. POS: [facility]
== END 2017-07-28 09:53 | disposition home or self-care (01) ==
LOC: ERS 07:57
DX: J44.1 Chronic obstructive pulmonary disease with (acute) exacerbation (principal); I10 Essential (primary) hypertension; J44.9 Chronic obstructive pulmonary disease, unspecified; Z79.899 Other long term (current) drug therapy
CPT/HCPCS: 71046

== ENCOUNTER 2018-03-29 07:45 | Observation (INO) | payer MEDICARE, OTHER ==
[2018-03-29] MEDS ORDERED: Ondansetron PF 4 MG/2 ML Vial ONE (08:17)
[2018-03-29 08:29] LABS: INR-International Normal Ratio 1.1; PTT 30.9 SEC (22.9-36.1); Prothrombin Time 14.4 SEC (12.0-14.7)
[2018-03-29 08:45] LABS: #Eosinphils 0.2 thou/uL (0.0-0.7); #Lymphocytes 0.7 thou/uL (1.20-3.40); #Monocytes 0.8 thou/uL (0.11-0.59); #Neutrophils 6.8 thou/uL (1.40-6.50); %Basophils 0.1 % (0.0-1.0); %Eosinophils 2.3 % (0.0-10.0); %Lymphocytes 8.2 % (21.0-51.0); %Monocytes 9.6 % (0.0-10.0); %Neutrophils 79.9 % (42.0-75.0)
[2018-03-29 08:50] LABS: ALT (SGPT) 11 U/L (8-55); AST (SGOT) 19 U/L (5-34); Albumin 3.1 g/dL (3.4-4.8); Alkaline Phosphatase 56 U/L (40-150); Anion Gap 13 mmol/L (10-20); BUN (Urea Nitrogen) 38 mg/dL (9.8-20.1); Bilirubin, Total 0.2 mg/dL (0.2-1.2); Calc. Creatinine Clearance 0 mL/min (70-130); Calcium 8.4 mg/dL (7.8-10.44); Carbon Dioxide 21 mmol/L (23-31); Chloride 105 mmol/L (98-107); Estimated GFR-MDRD Greater than 90; Globulin 3.9 g/dL (2.4-3.5); Glucose 130 mg/dL (83-110); Potassium 4.9 mmol/L (3.5-5.1); Sodium 134 mmol/L (136-145)
[2018-03-29 09:24] LABS: Band 2 % (5-11); Eosinophils 2 % (0-10); Hemoglobin 7.5 g/dL (12.0-16.0); Hypochromia SLIGHT = 6-15 cells (100X) (0-5/hpf); Lymphocytes 11 % (21-51); MDiff Complete? YES; Mean Corpuscular HGB CONC 29.4 g/dL (32.0-36.0); Mean Corpuscular Hemoglobin 25.4 pg (27.0-31.0); Mean Corpuscular Volume 86.3 fL (78.0-98.0); Mean Platelet Volume 7.8 fL (7.4-10.4); Monocytes 10 % (0-10); Neutrophil 75 % (42-75); Platelet Count 447 thou/uL (130-400); Platelet Morphology Comment Appears Increased; Polychromasia SLIGHT = 2-3 cells (100X) (0-2/hpf); RBC Distribution Width 14.5 % (11.5-14.5); Red Blood Cell (RBC) Count 2.95 mill/uL (4.20-5.40); White Blood Cell (WBC) Count 8.5 thou/uL (4.8-10.8)
--- NOTE | 2018-03-29 09:30 | RAD ---
PORTABLE CHEST: HISTORY: Weakness and nausea. COMPARISON: 07/28/2017. FINDINGS: A large fixed diaphragmatic hernia is again noted. There are interstitial and alveolar opacities in the right upper and lower lungs which are stable and are probably chronic. Heart size is upper normal and stable. Aortic calcification again noted. IMPRESSION: Large fixed diaphragmatic hernia. There are chronic-appearing lung parenchymal changes, more pronoun jack in the right lung which appear stable from 07/28/2017. POS: [facility]
[2018-03-29 17:44] VITALS: BMI 27.8
[2018-03-29] MEDS ORDERED: Sodium Chloride 0.9% 1,000 ML IV SCH (18:17)
[2018-03-29] MEDS ORDERED: Ondansetron ODT 4 MG TAB SL PRN (18:17)
[2018-03-29] MEDS ORDERED: Ondansetron PF 4 MG/2 ML Vial IVP PRN (18:17)
[2018-03-29 18:31] LABS: Hemoglobin 8.7 g/dL (12.0-16.0)
[2018-03-29] MEDS ORDERED: PROVENTIL INHALER 6.7 G (200 INHALATIONS) INH PRN (18:38)
[2018-03-29] MEDS ORDERED: traMADol HCl 50 MG TAB PO PRN (18:38)
[2018-03-29] MEDS ORDERED: Acetaminophen 325 MG TAB PO PRN (18:38)
[2018-03-29] MEDS: Ferrous Sulfate 325 MG TAB PO SCH (19:24)
[2018-03-30 05:50] LABS: #Eosinphils 0.4 thou/uL (0.0-0.7); #Lymphocytes 0.9 thou/uL (1.20-3.40); #Monocytes 0.7 thou/uL (0.11-0.59); #Neutrophils 4.4 thou/uL (1.40-6.50); %Basophils 0.5 % (0.0-1.0); %Lymphocytes 14.2 % (21.0-51.0); %Monocytes 10.1 % (0.0-10.0); %Neutrophils 68.2 % (42.0-75.0); Hemoglobin 8.3 g/dL (12.0-16.0); Mean Corpuscular HGB CONC 31.8 g/dL (32.0-36.0); Mean Corpuscular Hemoglobin 27.8 pg (27.0-31.0); Mean Corpuscular Volume 87.2 fL (78.0-98.0); Mean Platelet Volume 7.3 fL (7.4-10.4); Platelet Count 349 thou/uL (130-400); RBC Distribution Width 14.7 % (11.5-14.5); Red Blood Cell (RBC) Count 2.98 mill/uL (4.20-5.40); White Blood Cell (WBC) Count 6.4 thou/uL (4.8-10.8)
[2018-03-30 06:07] LABS: Anion Gap 9 mmol/L (10-20); BUN (Urea Nitrogen) 20 mg/dL (9.8-20.1); Calc. Creatinine Clearance 91 mL/min (70-130); Calcium 8.2 mg/dL (7.8-10.44); Carbon Dioxide 22 mmol/L (23-31); Chloride 110 mmol/L (98-107); Estimated GFR-MDRD Greater than 90; Glucose 94 mg/dL (83-110); Potassium 4.1 mmol/L (3.5-5.1); Sodium 137 mmol/L (136-145)
[2018-03-30] MEDS: Ferrous Sulfate 325 MG TAB PO SCH ×3 (10:15→20:21)
[2018-03-30] MEDS: Lisinopril 10 MG TAB PO SCH (10:15)
[2018-03-30] MEDS: Calcium Carbonate 600 MG TAB PO SCH (10:15)
[2018-03-30 10:20] LABS: Reticulocyte Count 3.8 % (0.5-1.5)
--- NOTE | 2018-03-30 15:56 | PDOC.PN ---
- Subjective Encounter Start Date: 03/30/18 Encounter Start Time: 09:00 Subjective: pt up in bed feels better than yestarday - Objective Resuscitation Status - Order Detail: 03/29/18 17:44 Resuscitation Status Routine Resuscitation Status: FULL: Full Resuscitation Vital Signs & Weight: Vital Signs (12 hours) Temp Pulse Pulse Resp BP BP BP 03/30/18 14:33 97.8 F 104 H 22 H 112/56 L 03/30/18 12:03 98.2 F 99 22 H 104/59 L 03/30/18 11:45 98.3 F 98 18 103/54 L 03/30/18 11:16 98.2 F 102 H 22 H 95/46 L 03/30/18 10:15 111/52 L 03/30/18 08:11 98 F 86 20 105/51 L 03/30/18 04:18 97.8 F 90 18 111/52 L Pulse Ox 03/30/18 14:33 03/30/18 12:03 93 L 03/30/18 11:45 92 L 03/30/18 11:16 96 03/30/18 10:15 03/30/18 08:11 97 03/30/18 04:18 97 Weight Admit Weight 152 lb Weight 152 lb I&O: 03/29/18 03/30/18 03/31/18 06:59 06:59 06:59 Intake Total 350 Output Total 450 400 Balance -450 -50 Result Diagrams: 03/30/18 05:35 03/30/18 05:35 Phys Exam - Physical Examination Neck: no nodes, no JVD, supple, full ROM Respiratory: no wheezing, no rales, no rhonchi, wheezing present, clear to auscultation bilateral Cardiovascular: RRR, no significant murmur, no rub, gallop, irregular Gastrointestinal: soft, non-tender, no distention, positive bowel sounds Dx/Plan (1) Anemia Code(s): D64.9 - ANEMIA, UNSPECIFIED Status: Acute Comment: Acute drop in hemoglobin (2) Symptomatic anemia Code(s): D64.9 - ANEMIA, UNSPECIFIED Status: Acute (3) Hypertension Code(s): I10 - ESSENTIAL (PRIMARY) HYPERTENSION Status: Chronic - Plan pt has had egd/colonoscopy and caspule no sign of bleeding -: she was offered BM 2017 but refused. she has not followed with -: heme/onc. echo ef was 50-55 in 2017. her bp has been low. -: will check trops if neg, she may be discharged. NO sign of hemolysis -: she has received 3u of blood * . Review of Systems - Review of Systems ENT: negative: Ear Pain, Ear Discharge, Nose Pain, Nose Discharge, Nose Congestion, Mouth Pain, Mouth Swelling, Throat Pain, Throat Swelling, Other Respiratory: negative: Cough, Dry, Shortness of Breath, Hemoptysis, SOB with Excertion, Pleuritic Pain, Sputum, Wheezing Cardiovascular: negative: chest pain, palpitations, orthopnea, paroxysmal nocturnal dyspnea, edema, light headedness, other Gastrointestinal: negative: Nausea, Vomiting, Abdominal Pain, Diarrhea, Constipation, Melena, Hematochezia, Other Genitourinary: negative: Dysuria, Frequency, Incontinence, Hematuria, Retention , Other Neurological: Weakness - Medications/Allergies Allergies/Adverse Reactions: Allergies Allergy/AdvReac Type Severity Reaction Status Date / Time gabapentin Allergy Hives Verified 03/19/17 01:27 Medications: Current Medications Acetaminophen (Tylenol) 650 mg PO Q6H PRN PRN Reason: Moderate Pain (4-6) Last Admin: 03/29/18 19:24 Dose: 650 mg Albuterol Sulfate (Proventil Hfa) 2 puff INH DAILYPRN PRN PRN Reason: SOB &/or Wheezing Calcium Carbonate (Caltrate) 600 mg PO DAILY [facility] Last Admin: 03/30/18 10:15 Dose: 600 mg Ferrous Sulfate (Feosol) 325 mg PO TID [facility] Last Admin: 03/30/18 10:15 Dose: 325 mg Lisinopril (Zestril) 10 mg PO DAILY [facility] Last Admin: 03/30/18 10:15 Dose: 10 mg Pantoprazole Sodium (Protonix) 40 mg PO DAILY [facility] Last Admin: 03/30/18 10:15 Dose: 40 mg Tramadol HCl (Ultram) 50 mg PO TID PRN PRN Reason: Pain
[2018-03-30 16:57] LABS: Troponin I Less than 0.010 ng/mL (< 0.028)
--- NOTE | 2018-03-30 19:30 | HP ---
CHIEF COMPLAINT: Generalized weakness. HISTORY OF PRESENT ILLNESS: The patient is a very pleasant 72-year-old female, who initially presented to the hospital with complaints of just generalized weakness. The patient stated to me yesterday that she prior to coming to the hospital, she just had generalized body aches and pains and just did not feel well, felt very weak and dizzy. At that time, she thought most likely her blood counts were low, so she came into the hospital for further evaluation. The patient denies any URI like symptoms. She denies any nausea, vomiting, or diarrhea. She denies any chest pain or chest pressure or any shortness of breath. ALLERGIES: SHE IS ALLERGIC TO GABAPENTIN. HOME MEDICATIONS: 1. Albuterol 2 puffs daily. 2. Iron 325 daily. 3. Singulair 100 mg daily. 4. Symbicort 2 puffs b.i.d. 5. Sertraline 100 mg daily. 6. Lisinopril 10 mg daily. REVIEW OF SYSTEMS: All negative except for the ones mentioned above in the HPI. PAST MEDICAL HISTORY: History of COPD, breast carcinoma, and history of recurrent anemia requiring blood transfusions. PAST SURGICAL HISTORY: She has only had C-sections and lymph node removal for breast cancer. PSYCHIATRIC HISTORY: None. SOCIAL HISTORY: She is originally from [place]. She lives with her daughter here. Denies any alcohol use or drug use. 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 FAMILY HISTORY: No history of any heart disease, strokes or anemia or cancer. PHYSICAL EXAMINATION: VITAL SIGNS: Vital signs were as of the following; temperature of 98.2, heart rate 99, respirations are 18, 93% on room air, and her blood pressure was 104/59. GENERAL: She is awake, alert, and oriented x3. Does not appear in distress. CV: S1 and S2 present. No murmurs, rubs, or gallops. ABDOMEN: Soft and nontender. Bowel sounds present x2. EXTREMITIES: No edema. Pedal pulses are present x2. HEENT: Normocephalic and atraumatic. No lymphadenopathy noted. Her conjunctivae have no pallor. Mucous membranes are nice and moist. NEUROVASCULAR: Neurovascular maya, no focal deficits noted. SKIN: No cuts, lesions, or bruises noted. LABORATORY RESULTS: WBC of 6.4, hemoglobin of 8 and when she came in was 7.5, hematocrit of 25.5, and platelets are 447. Chemistry; sodium of 134, potassium of 4.9, BUN of 30, creatinine of 0.64, and glucose of 130. She did have an EKG, which appeared to be stable. She did also have a chest x-ray done, which did not indicate any acute abnormalities, just indicated a large fixed diaphragmatic hernia. ASSESSMENT AND PLAN: The patient is a very pleasant female, who presents to the hospital with generalized weakness. 1. Acute on chronic anemia. I did review the chart. The patient has had multiple esophagogastroduodenoscopies and endoscopies including capsular studies for her possible chronic anemia; however, unclear etiology. She also was seen by Oncology here last in 2017 for anemia and it seems that a bone marrow biopsy was discussed with the patient; however, she stated that she wants to talk to her physician in [place]. However, when I talked with her this admission about possible bone marrow or even following up with Oncology here, she said that her doctors were all in [place]. I highly recommended her to follow up with an oncologist to get a bone marrow to figure out why she has chronic anemia without any unclear etiology. Besides anemia, all her other counts have been stable. Her reticulocyte count is 3.8, and she is on chronic iron pills. Her LDH is mildly elevated at 255, but her bilirubin is completely normal. I will go ahead and transfuse her with couple units to make sure that her hemoglobin is at baseline. However, she will need to follow up with her primary care doctor for further evaluation. 2. Hypertension. However, currently her blood pressures are very labile. We will try and hold her blood pressure medication. 3. Deep venous thrombosis prophylaxis. We will put the patient on sequential compression devices. Job ID: [id number]
[2018-03-30 20:53] LABS: Troponin I Less than 0.010 ng/mL (< 0.028)
[2018-03-31 01:01] LABS: Troponin I Less than 0.010 ng/mL (< 0.028)
[2018-03-31] MEDS: Calcium Carbonate 600 MG TAB PO SCH (08:38)
[2018-03-31] MEDS: Ferrous Sulfate 325 MG TAB PO SCH ×2 (08:38→15:55)
[2018-03-31 08:41] LABS: Hemoglobin 8.9 g/dL (12.0-16.0); Platelet Count 394 thou/uL (130-400)
[2018-03-31] MEDS: Lisinopril 10 MG TAB PO SCH (09:50)
[2018-03-31 16:18] VITALS: BP 108/53; TEMP 98.6
[2018-03-31 16:55] LABS: Hemoglobin 10.5 g/dL (12.0-16.0)
--- NOTE | 2018-04-01 14:27 | DIS ---
DATE OF ADMISSION: 03/29/2018 DATE OF DISCHARGE: 03/31/2018 DISCHARGE DIAGNOSES: 1. Symptomatic anemia. 2. Anemia of unknown etiology. 3. Hypertension. HOSPITAL COURSE: The patient is a 72-year-old female who initially presented to the hospital with complaints of generalized body aches and pains. The patient was found to have an H and H of 7.5. She received 3 units of blood. Her discharge hemoglobin was 10.5. She did have a reticular count of 3.8. Her LDH was only 255. Her ferritin level was 157, and her troponins x3 were negative. I did review this patient's chart. She has had extensive workup in the past including EGD, colonoscopy and small-bowel follow-through, which did not indicate any etiology of her bleeding. The patient was seen by Hematology Oncology here; however, they had recommended her to get a bone marrow biopsy, which the patient refused, stating that she lives in [facility] and would like to follow up in [place] where her normal doctors are. At this time, I did emphasize the importance that she needs to follow up with Hematology Oncology to figure out the etiology of her anemia. She stated that she will do so. She recently had a scope on March 21, 2017. 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 No dysplasia or malignancy was noted. The patient was encouraged that she needed to follow up with her primary care doctor and also her highway engineering technician for repeat endoscopy. The patient also had a small hiatal hernia. The patient stated that she did not want anything to be done here and wanted to follow up with her doctors in [place]. PHYSICAL EXAMINATION: Her discharge vital signs were as of the following: VITAL SIGNS: 98.6, 20, 92% on room air, 108/53. GENERAL: She is awake, alert, and oriented x3. Does not appear in distress. CV: S1, S2 present. No murmurs, rubs, or gallops. ABDOMEN: Soft and nontender. Bowel sounds are present. EXTREMITIES: No edema. Pedal pulses are present x2. HOME MEDICATIONS: As of the followin. Lisinopril 5 mg daily, this was decreased. Tramadol 50 mg t.i.d. p.r.n. 2. Pantoprazole 40 mg daily. 3. Breo Ellipta 1 puff daily. 4. Iron 325 p.o. t.i.d. 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 Also, I encouraged that she follows up with Hematology Oncology for a bone marrow biopsy to figure out why she is anemic. There is no hemolytic anemia since her LDH was mildly elevated and her bili was completely normal. Job ID: [id number]
== END 2018-03-31 18:21 | disposition home or self-care (01) ==
LOC: ERS 07:45 → ERHOLD 11:30 → 2SW 16:35
PROVIDERS: ADMIT Internal Medicine; ATTEND Internal Medicine
DX: D64.9 Anemia, unspecified (principal); J44.9 Chronic obstructive pulmonary disease, unspecified; I10 Essential (primary) hypertension; K22.70 Barrett's esophagus without dysplasia; Z79.899 Other long term (current) drug therapy; Z88.8 Allergy status to other drugs, medicaments and biological substances
CPT/HCPCS: 36430 ×3; 71045; 80048; 80053; 82728; 83540; 83615; 84484 ×3; 85014 ×3; 85018 ×3; 85025 ×2; 85046; 85049; 85610; 85730; 86850; 86900; 86901; 86920; 93005; 96361; 96374; 99285; G0378 ×2; P9016 ×3; 36415; J2405

== ENCOUNTER 2018-05-03 18:05 | Emergency (ER) | payer MEDICARE, OTHER ==
--- NOTE | 2018-05-03 20:20 | RAD ---
PA AND LATERAL CHEST 05/03/18 HISTORY: Fall. Left sided rib pain. Heart size is borderline. There are atherosclerotic changes of the aorta. Chronic appearing lung stanley ges are similar to the 07/28/17 exam. No pneumothorax identified and no signs of fracture. IMPRESSION: Stable exam. POS: [facility]
[2018-05-03] MEDS ORDERED: Ibuprofen 200 MG TAB ONE (20:22)
== END 2018-05-03 20:25 | disposition home or self-care (01) ==
LOC: ERS 18:05
DX: R07.81 Pleurodynia (principal); I10 Essential (primary) hypertension; J44.9 Chronic obstructive pulmonary disease, unspecified; V29.40XA Motorcycle driver injured in collision with unspecified motor vehicles in traffic accident, initial encounter
CPT/HCPCS: 71046; 93005

== ENCOUNTER 2018-05-08 12:31 | Emergency (ER) | payer OTHER ==
[2018-05-08 13:18] LABS: #Eosinphils 0.5 thou/uL (0.0-0.7); #Lymphocytes 1.1 thou/uL (1.20-3.40); #Monocytes 0.8 thou/uL (0.11-0.59); #Neutrophils 9.1 thou/uL (1.40-6.50); %Basophils 0.1 % (0.0-1.0); %Eosinophils 4.1 % (0.0-10.0); %Lymphocytes 9.8 % (21.0-51.0); %Monocytes 7.3 % (0.0-10.0); %Neutrophils 78.8 % (42.0-75.0); Hemoglobin 7.5 g/dL (12.0-16.0); Mean Corpuscular HGB CONC 30.7 g/dL (32.0-36.0); Mean Corpuscular Hemoglobin 28.2 pg (27.0-31.0); Mean Corpuscular Volume 91.8 fL (78.0-98.0); Mean Platelet Volume 7.5 fL (7.4-10.4); Platelet Count 449 thou/uL (130-400); RBC Distribution Width 16.7 % (11.5-14.5); Red Blood Cell (RBC) Count 2.66 mill/uL (4.20-5.40); White Blood Cell (WBC) Count 11.5 thou/uL (4.8-10.8)
[2018-05-08 13:34] LABS: ALT (SGPT) 11 U/L (8-55); AST (SGOT) 15 U/L (5-34); Albumin 3.4 g/dL (3.4-4.8); Alkaline Phosphatase 62 U/L (40-150); Anion Gap 10 mmol/L (10-20); BUN (Urea Nitrogen) 26 mg/dL (9.8-20.1); Bilirubin, Total 0.2 mg/dL (0.2-1.2); Calc. Creatinine Clearance 0 mL/min (70-130); Calcium 8.6 mg/dL (7.8-10.44); Carbon Dioxide 26 mmol/L (23-31); Chloride 105 mmol/L (98-107); Estimated GFR-MDRD 72; Globulin 3.7 g/dL (2.4-3.5); Glucose 110 mg/dL (83-110); Potassium 4.2 mmol/L (3.5-5.1); Protein, Total 7.1 g/dL (6.0-8.3); Sodium 137 mmol/L (136-145)
[2018-05-08 14:09] LABS: Bilirubin Negative (Negative); Blood, Urine Negative (Negative); Clarity CLEAR (Clear); Glucose, Urine (Dipstick) Negative (Negative); Leukocyte Negative (Negative); Nitrite Negative (Negative); Protein, Urine (Dipstick) Negative (Neg-Trace); Specific Gravity, Urine 1.022 (1.002-1.036); pH, Urine 5.5 (5.0-9.0)
--- NOTE | 2018-05-14 20:33 | EKG ---
Test Reason : Blood Pressure : / mmHG Vent. Rate : 103 BPM Atrial Rate : 103 BPM P-R Int : 124 ms QRS Dur : 072 ms QT Int : 346 ms P-R-T Axes : 039 018 044 degrees QTc Int : 453 ms Sinus tachycardia Septal infarct , age undetermined Abnormal ECG Confirmed by JOSE RAFAEL VILLEGAS MD ([id number]), editorial intern YOVANNY MAYBERRY ([id number]) on 05/14/2018 8:32:38 PM Referred By: Confirmed By:JOSE RAFAEL VILLEGAS MD
== END 2018-05-08 15:02 | disposition home or self-care (01) ==
LOC: ERS 12:31
DX: D64.9 Anemia, unspecified (principal); I10 Essential (primary) hypertension; J44.9 Chronic obstructive pulmonary disease, unspecified; Z79.899 Other long term (current) drug therapy
CPT/HCPCS: 80053; 81003; 84484; 85025; 93005; 96360

== ENCOUNTER 2019-01-05 14:34 | Emergency (ER) | payer MEDICARE, OTHER ==
[2019-01-05 15:13] LABS: #Eosinphils 0.2 thou/uL (0.0-0.7); #Lymphocytes 1.1 thou/uL (1.20-3.40); #Neutrophils 12.3 thou/uL (1.40-6.50); %Basophils 0.3 % (0.0-1.0); %Eosinophils 1.6 % (0.0-10.0); %Lymphocytes 7.7 % (21.0-51.0); %Monocytes 6.7 % (0.0-10.0); %Neutrophils 83.7 % (42.0-75.0); Hemoglobin 9.2 g/dL (12.0-16.0); Mean Corpuscular HGB CONC 32.6 g/dL (32.0-36.0); Mean Corpuscular Hemoglobin 27.9 pg (27.0-31.0); Mean Corpuscular Volume 85.7 fL (78.0-98.0); Mean Platelet Volume 7.1 fL (7.4-10.4); Platelet Count 387 thou/uL (130-400); Red Blood Cell (RBC) Count 3.29 mill/uL (4.20-5.40); White Blood Cell (WBC) Count 14.7 thou/uL (4.8-10.8)
--- NOTE | 2019-01-05 15:15 | RAD ---
EXAM: CHEST ONE VIEW HISTORY: Anemia, weakness. COMPARISON: 03/29/2018 FINDINGS: Large hiatal hernia is again seen which is distended with gas. There is atelectasis adjacent to the h iatal hernia. Cardiac silhouette is mildly enlarged. The pulmonary vasculature is within normal limits. No consolidation or pleural fluid is identified. Mild chronic appearing lung changes are agai n seen. Vascular calcifications are seen in the thoracic aorta. The osseous structures are intact. Chest is overall stable compared to prior exam. IMPRESSION: 1. Stable large hiatal hernia and mild chronic lung changes. 2. No acute cardiopulmonary process.
[2019-01-05 15:37] LABS: ALT (SGPT) 8 U/L (8-55); AST (SGOT) 14 U/L (5-34); Albumin 3.5 g/dL (3.4-4.8); Alkaline Phosphatase 48 U/L (40-110); Anion Gap 13 mmol/L (10-20); BUN (Urea Nitrogen) 28 mg/dL (9.8-20.1); Bilirubin, Total 0.2 mg/dL (0.2-1.2); Calc. Creatinine Clearance 0 mL/min (70-130); Calcium 8.4 mg/dL (7.8-10.44); Carbon Dioxide 25 mmol/L (23-31); Chloride 105 mmol/L (98-107); Estimated GFR-MDRD 72; Globulin 3.3 g/dL (2.4-3.5); Glucose 116 mg/dL (83-110); Potassium 4.7 mmol/L (3.5-5.1); Protein, Total 6.8 g/dL (6.0-8.3); Sodium 138 mmol/L (136-145)
[2019-01-05 16:44] LABS: Bilirubin Negative (Negative); Blood, Urine Negative (Negative); Clarity Clear (Clear); Glucose, Urine (Dipstick) Normal (Negative); Leukocyte 250 Leu/uL (Negative); Nitrite Negative (Negative); Protein, Urine (Dipstick) Negative (Neg-Trace); RBC/HPF 0-3 HPF (0-3); Squamous Epithelial 0-3 HPF (0-3); Urobilinogen Normal mg/dL (Less than 2); WBC/HPF 21-50 HPF (0-3)
[2019-01-05 16:46] LABS: Bacteria/HPF 1+ HPF (None Seen)
[2019-01-05] MEDS ORDERED: Acetaminophen 500 MG TAB ONE (17:17)
[2019-01-05] MEDS ORDERED: Ondansetron ODT 4 MG TAB ONE (17:34)
== END 2019-01-05 17:45 | disposition home or self-care (01) ==
LOC: ERS 14:34
DX: J44.1 Chronic obstructive pulmonary disease with (acute) exacerbation (principal); N39.0 Urinary tract infection, site not specified; I10 Essential (primary) hypertension; D64.9 Anemia, unspecified; Z79.899 Other long term (current) drug therapy; Z79.51 Long term (current) use of inhaled steroids
CPT/HCPCS: 36415; 71045; 80053; 81003; 81015; 83690; 83880; 84484; 85025; 86850; 86900; 86901; 87086; 87804; 93005; 94640; 96360; Q0162